=== PATIENT | male | born 1970 | race Hispanic/Latino ===

== ENCOUNTER 2018-08-21 14:41 | Observation (INO) | payer SELFPAY ==
[2018-08-21] MEDS ORDERED: LEVALBUTEROL 1.25 MG/3 ML NEB ONE (15:28)
[2018-08-21 15:31] LABS: Absolute Lymphocytes (CBC) 2.4 K/uL (0.7-4.9); Absolute Monocytes 0.8 K/uL (0.1-1.3); Absolute Neutrophil 8.9 K/uL (1.8-8.0); Basophils % 0.3 % (0-1.3); Eosinophils % 4.2 % (0-4.4); Hematocrit 47.1 % (39.6-49.0); Lymphocytes % 18.9 % (15.3-44.8); MPV 9.1 fL (7.6-11.3); Monocytes % 6.1 % (3.3-12.3); Protime INR 0.97; RBC Red Blood Cell Count 5.16 M/uL (4.33-5.43)
[2018-08-21 15:46] LABS: Albumin 3.9 g/dL (3.4-5.0); Bilirubin Direct 0.2 mg/dL (0-0.2); Bilirubin Total 0.4 mg/dL (0.2-1.0); Magnesium 2.3 mg/dL (1.8-2.4); Potassium 4.1 mmol/L (3.5-5.1); Protein, Total 7.9 g/dL (6.4-8.2); Troponin (Emerg Dept Use Only) 0.05 ng/mL (0.0-0.045)
--- NOTE | 2018-08-21 16:11 | RAD REPORT ---
EXAM DESCRIPTION: RAD - Chest Single View - 08/21/2018 3:57 pm CLINICAL HISTORY: cough, shortness of breath Chest pain. COMPARISON: CHEST SINGLE VIEW dated 04/27/2014; CHEST SINGLE VIEW dated 04/17/2014; CHEST SINGLE VIEW dated 04/16/2014 FINDINGS: Portable technique limits examination quality. The lungs are grossly clear. The heart is normal in size. No displaced fractures. IMPRESSION: No acute intrathoracic process suspected.
[2018-08-21] MEDS ORDERED: METHYLPREDNISOLONE 125 MG INJ ONE (16:51)
--- NOTE | 2018-08-21 17:02 | ER ---
Nurse's Notes [facility] Name: José Beck Age: 48 yrs Sex: Male : 1970 Arrival Date: 08/21/2018 Time: 14:41 Bed 26 Private MD: Diagnosis: Acute bronchitis;Dyspnea;Elevated Troponin Presentation: 08/21 14:49 Presenting complaint: Patient states: I have been having SOB and congestion for about a la1 week and nothing OTC is working. Transition of care: patient was not received from another setting of care. Onset of symptoms was August 21, 2018. Risk Assessment: Do you want to hurt yourself or someone else? Patient reports no desire to harm self or others. Initial Sepsis Screen: Does the patient meet any 2 criteria? No. Patient's initial sepsis screen is negative. Does the patient have a suspected source of infection? No. Patient's initial sepsis screen is negative. Care prior to arrival: None. 14:49 Method Of Arrival: Ambulatory la1 14:49 Acuity: MICHELLE 3 la1 Historical: - Allergies: 14:50 No Known Allergies; la1 - Home Meds: 14:50 metoprolol succinate 100 mg oral Tb24 1 tab once daily [Active]; lisinopril 40 mg Oral la1 tab 1 tab once daily [Active]; - PMHx: 14:50 Hypertension; la1 - Immunization history:: Adult Immunizations up to date. - Social history:: Smoking status: Patient/guardian denies using tobacco. - Ebola Screening: : No symptoms or risks identified at this time. Screenin:55 Abuse screen: Denies threats or abuse. Denies injuries from another. Nutritional ca1 screening: No deficits noted. Tuberculosis screening: No symptoms or risk factors identified. Fall Risk None identified. Assessment: 14:55 General: Appears in no apparent distress. comfortable, Behavior is calm, cooperative, ca1 appropriate for age. 14:55 Pain: Denies pain. Neuro: Level of Consciousness is awake, alert, obeys commands, ca1 Oriented to person, place, time, Appropriate for age. Cardiovascular: Heart tones S1 S2 present Capillary refill < 3 seconds Patient's skin is warm and dry. Rhythm is sinus rhythm. Respiratory: Reports shortness of breath cough that is productive, since a week ago Airway is patent Respiratory effort is even, unlabored, Respiratory pattern is regular, symmetrical, Breath sounds are clear bilaterally. GI: Abdomen is round non-distended, Bowel sounds present X 4 quads. Abd is soft and non tender X 4 quads. : No deficits noted. No signs and/or symptoms were reported regarding the genitourinary system. EENT: Reports nasal congestion nasal discharge that is watery. Derm: Skin is intact, is healthy with good turgor, Skin is pink, warm \T\ dry. Musculoskeletal: Circulation, motion, and sensation intact. Capillary refill < 3 seconds. 15:22 Reassessment: Patient appears in no apparent distress at this time. Patient is alert, ca1 oriented x 3, equal unlabored respirations, skin warm/dry/pink. Significant other at bedside. Reports breathes better with 02 via NC on. 16:07 Reassessment: Patient appears in no apparent distress at this time. Patient is alert, ca1 oriented x 3, equal unlabored respirations, skin warm/dry/pink. 16:43 Reassessment: Patient appears in no apparent distress at this time. Patient is alert, ca1 oriented x 3, equal unlabored respirations, skin warm/dry/pink. 16:53 Reassessment: Dr. Walsh at bedside. ca1 17:25 Reassessment: Patient appears in no apparent distress at this time. Patient is alert, ca1 oriented x 3, equal unlabored respirations, skin warm/dry/pink. Awaiting room assignment. Vital Signs: 14:50 Pulse 80; Resp 20; Temp 99.0(O); Pulse Ox 96% on R/A; Weight 117.93 kg; Height 5 ft. 9 la1 in. (175.26 cm); 14:51 BP 174 / 113; la1 15:22 BP 153 / 107; Pulse 74; Resp 19 S; Pulse Ox 99% on 2 lpm NC; ca1 16:07 BP 149 / 94; Pulse 75; Resp 19 S; Pulse Ox 96% on 2 lpm NC; ca1 16:43 BP 139 / 109; Pulse 83; Resp 19 S; Pulse Ox 97% on 2 lpm NC; ca1 17:25 BP 157 / 103; Pulse 68; Resp 19 S; Pulse Ox 97% on 2 lpm NC; ca1 14:50 Body Mass Index 38.39 (117.93 kg, 175.26 cm) la1 ED Course: 14:41 Patient arrived in ED. as 14:49 Triage completed. la1 14:50 Arm band placed on left wrist. la1 14:54 Artem Chicas PA is PHCP. jmm 14:54 Mekhi Danielson MD is Attending Physician. jmm 14:55 Patient has correct armband on for positive identification. Placed in gown. Bed in low ca1 position. Call light in reach. Side rails up X 1. ekg monitor on. ekg monitor on. Pulse ox on. NIBP on. Warm blanket given. 14:58 Artem Chicas PA is PHCP. jmm 14:58 Mekhi Danielson MD is Attending Physician. jmm 14:58 Carine Rodas, GINO is Primary Nurse. ca1 15:00 Oxygen administration via nasal cannula \T\ 2L/min Response to oxygen therapy: symptoms jp3 improved. 15:05 Flu and/or RSV swab sent to lab. Strep swab sent to lab. EKG done, by ED staff, jp3 reviewed by Artem BALDWIN. 15:15 Initial lab(s) drawn, by vt, sent to lab. Inserted saline lock: 20 gauge in right jp3 antecubital area, using aseptic technique. Blood collected. 15:21 Strep Sent. jp3 15:21 Flu Sent. jp3 15:21 Basic Metabolic Panel Sent. jp3 15:21 CBC with Diff Sent. jp3 15:22 LFT's Sent. jp3 15:22 Magnesium Sent. jp3 15:22 NT PRO-BNP Sent. jp3 15:22 PT-INR Sent. jp3 15:22 Troponin (emerg Dept Use Only) Sent. jp3 15:57 XRAY Chest (1 view) In Process Unspecified. EDMS 17:00 Anup Walsh DO is Hospitalizing Provider. jmm 17:32 No provider procedures requiring assistance completed. Patient admitted, IV remains in ca1 place. Administered Medications: 15:07 Drug: Xopenex 1.25 mg Route: Inhalation; ca1 16:40 Drug: SOLU-Medrol 125 mg Route: IVP; Site: right antecubital; ca1 17:07 Follow up: Response: No adverse reaction; Marked relief of symptoms ca1 16:46 CANCELLED (Duplicate Order): SOLU-Medrol 125 mg IVP once [facility] Outcome: 17:01 Decision to Hospitalize by Provider. humaira 17:32 Admitted to Tele accompanied by tech, family with patient, via wheelchair, room 413, ca1 with chart, Report called to Brandie Kothari RN 17:32 Condition: stable 17:32 Instructed on the need for admit. 17:38 Patient left the ED. ca1 Signatures: Dispatcher [employer] EDMS Artem Chicas PA PA jmm Martinez, Amelia as Attema, Lee, RN RN Jean-Pierre Mcgill jp3 Carine Rodas RN RN ca1 Corrections: (The following items were deleted from the chart) 16:44 15:22 BP 153 / 107; Pulse 74bpm; Resp 19bpm; Spontaneous; Pulse Ox 99% RA; ca1 ca1 16:44 16:07 BP 149 / 94; Pulse 75bpm; Resp 19bpm; Spontaneous; Pulse Ox 96% RA; ca1 ca1
--- NOTE | 2018-08-21 17:02 | EDPHYS ---
Physician Documentation [facility] Name: José Beck Age: 48 yrs Sex: Male : 1970 Arrival Date: 08/21/2018 Time: 14:41 Bed 26 Private MD: ED Physician Mekhi Danielson HPI: 08/21 15:02 This 48 yrs old Male presents to ER via Ambulatory with complaints of Wheezing jmm > 1 Year, Congestion. 15:02 Onset: The symptoms/episode began/occurred gradually, 1 week(s) ago. Modifying factors: jmm The symptoms are alleviated by nothing, the symptoms are aggravated by nothing. This is a 48 year old male with a history of htn that presents to the ED with complaints of cough, fever, congestion beginning 1 week ago. Patient states he has had increasingly worsening shortness of breath. Patient denies chest pain. . Historical: - Allergies: 14:50 No Known Allergies; la1 - Home Meds: 14:50 metoprolol succinate 100 mg oral Tb24 1 tab once daily [Active]; lisinopril 40 mg Oral la1 tab 1 tab once daily [Active]; - PMHx: 14:50 Hypertension; la1 - Immunization history:: Adult Immunizations up to date. - Social history:: Smoking status: Patient/guardian denies using tobacco. - Ebola Screening: : No symptoms or risks identified at this time. ROS: 15:02 Constitutional: Positive for body aches, fever. jmm 15:02 ENT: Positive for sore throat. 15:02 Respiratory: Positive for shortness of breath, wheezing. 15:02 All other systems are negative. Exam: 15:02 Constitutional: This is a well developed, well nourished patient who is awake, alert, jmm and in no acute distress. Head/Face: atraumatic. Eyes: EOMI, no conjunctival erythema appreciated ENT: Moist Mucus Membranes Neck: Trachea midline, Supple Chest/axilla: Normal chest wall appearance and motion. Cardiovascular: Regular rate and rhythm. No edema appreciated 15:02 Back: Normal ROM Skin: General appearance color normal MS/ Extremity: Moves all extremities, no obvious deformities appreciated, no edema noted to the lower extremities Neuro: Awake and alert, normal gait Psych: Behavior is normal, Mood is normal, Patient is cooperative and pleasant 15:02 Respiratory: mild respiratory distress is noted, Respirations: normal, Breath sounds: wheezing: that is moderate, is heard diffusely. 15:02 ECG was reviewed by the Attending Physician. [facility] Vital Signs: 14:50 Pulse 80; Resp 20; Temp 99.0(O); Pulse Ox 96% on R/A; Weight 117.93 kg; Height 5 ft. 9 la1 in. (175.26 cm); 14:51 BP 174 / 113; la1 15:22 BP 153 / 107; Pulse 74; Resp 19 S; Pulse Ox 99% on 2 lpm NC; ca1 16:07 BP 149 / 94; Pulse 75; Resp 19 S; Pulse Ox 96% on 2 lpm NC; ca1 16:43 BP 139 / 109; Pulse 83; Resp 19 S; Pulse Ox 97% on 2 lpm NC; ca1 17:25 BP 157 / 103; Pulse 68; Resp 19 S; Pulse Ox 97% on 2 lpm NC; ca1 14:50 Body Mass Index 38.39 (117.93 kg, 175.26 cm) la1 MDM: 15:02 Patient medically screened. jon 16:53 Data reviewed: vital signs, nurses notes, lab test result(s), EKG, radiologic studies. [facility] ED course: Patient continues to have diffuse wheezing on re auscultation. EKG changes noted. Troponin elevated. I discussed the patient with Dr. Danielson whom recommends admission. I discussed the patient with Dr. Walsh whom accepted admission. . 08/21 15:02 Order name: Basic Metabolic Panel; Complete Time: 15:50 [facility] 08/21 15:02 Order name: CBC with Diff; Complete Time: 15:38 [facility] 08/21 15:02 Order name: LFT's; Complete Time: 15:50 [facility] 08/21 15:02 Order name: Magnesium; Complete Time: 15:50 [facility] 08/21 15:02 Order name: NT PRO-BNP; Complete Time: 15:50 [facility] 08/21 15:02 Order name: PT-INR; Complete Time: 15:38 [facility] 08/21 15:02 Order name: Troponin (emerg Dept Use Only); Complete Time: 15:50 [facility] 08/21 15:02 Order name: XRAY Chest (1 view); Complete Time: 16:18 [facility] 08/21 15:02 Order name: Flu; Complete Time: 15:56 [facility] 08/21 15:02 Order name: Strep; Complete Time: 15:56 [facility] 08/21 15:57 Order name: Throat Culture [facility] 08/21 15:02 Order name: EKG; Complete Time: 15:03 [facility] 08/21 15:02 Order name: Cardiac monitoring; Complete Time: 15:14 [facility] 08/21 15:02 Order name: EKG - Nurse/Tech; Complete Time: 15:14 [facility] 08/21 15:02 Order name: IV Saline Lock; Complete Time: 15:14 [facility] 08/21 15:02 Order name: Labs collected and sent; Complete Time: 15:14 [facility] 08/21 15:02 Order name: O2 Per Protocol; Complete Time: 15:14 [facility] 08/21 15:02 Order name: O2 Sat Monitoring; Complete Time: 15:14 jmm EC:02 Rate is 72 beats/min. Rhythm is regular. QRS [place] is Normal. DC interval is normal. QRS jmm interval is normal. QT interval is normal. T waves are Inverted in leads I, aVL, V5, V6. No ST changes noted. Administered Medications: 15:07 Drug: Xopenex 1.25 mg Route: Inhalation; ca1 16:40 Drug: SOLU-Medrol 125 mg Route: IVP; Site: right antecubital; ca1 17:07 Follow up: Response: No adverse reaction; Marked relief of symptoms ca1 16:46 CANCELLED (Duplicate Order): SOLU-Medrol 125 mg IVP once jmm Disposition: 08/22 08:13 Co-signature as Attending Physician, Mekhi Danielson MD I agree with the assessment and [facility] plan of care. Disposition: 08/21/18 17:01 Hospitalization ordered by Anup Walsh for Observation. Preliminary diagnosis are Acute bronchitis, Dyspnea, Elevated Troponin. - Bed requested for Telemetry/MedSurg (observation). - Status is Observation. ca1 - Condition is Stable. - Problem is new. - Symptoms have improved. UTI on Admission? No Signatures: Dispatcher [employer] EDMS Fern Arriaza Corey, MD MD cha Mickail, Joel, PA PA [facility] Ravi Elmore RN RN la1 Carine Rodas RN RN ca1 Corrections: (The following items were deleted from the chart) 04/07 16:46 16:46 SOLU-Medrol 125 mg IVP once ordered. humaira [facility] 17:23 17:01 Hospitalization Ordered by Anup Walsh DO for Observation. Preliminary bd diagnosis is Acute bronchitis; Dyspnea; Elevated Troponin. Bed requested for Telemetry/MedSurg (observation). Status is Observation. Condition is Stable. Problem is new. Symptoms have improved. UTI on Admission? No. [facility] 17:38 17:23 08/21/2018 17:01 Hospitalization Ordered by Anup Walsh DO for Observation. ca1 Preliminary diagnosis is Acute bronchitis; Dyspnea; Elevated Troponin. Bed requested for Telemetry/MedSurg (observation). Status is Observation. Condition is Stable. Problem is new. Symptoms have improved. UTI on Admission? No. bd
--- NOTE | 2018-08-21 17:11 | P.HP ---
Certification for Inpatient Patient admitted to: Observation With expected LOS: <2 Midnights Patient will require the following post-hospital care: None Practitioner: I am a practitioner with admitting privileges, knowledge of patient current condition, hospital course, and medical plan of care. Services: Services provided to patient in accordance with Admission requirements found in Title 42 Section 412.3 of the Code of Federal Regulations Patient History Date of Service: 08/21/18 Primary Care Provider: Daniella Meza NP; Cardiology-Dr. Mcdonald Reason for admission: SOB History of Present Illness: 48-year-old male presented to emergency room with increasing cough, congestion and shortness of breath. Patient has had symptoms over the last week. The patient has been wheezing. No significant fever, chills. No chest pain noted. His symptoms have not improved. Patient also reports a history of hypertension. Blood pressures have been out of control. Patient with prior history of systolic congestive heart failure with prior ejection fraction of 20- 25%. It is been quite some time that the patient has seen Cardiology. In the ER patient evaluated. Patient had low saturations upon evaluation. Strep test negative. Influenza test negative. Chest x-ray unremarkable. Troponin slightly elevated at 0.05. EKG shows possible T wave inversions in the lateral leads. White count 12.7. Sodium 142, potassium 4.1, BUN of 11, creatinine 1.1 with a GFR 70. Glucose 123. Patient was admitted for observation and to further evaluate. In the ER patient appears stable. Family at bedside. Patient with history of hypertension, systolic CHF with prior ejection fraction of 20-25%. Last heart catheterization was in 2013. Normal coronaries were noted at that time. Patient has not followed up with Cardiology recently. Blood pressures have been elevated. Patient continues to drink alcohol and smokes but is trying to cut down on both. Patient with significant family history of heart disease. Allergies No Known Drug Allergies Allergy (Unverified 04/28/14 04:14) Unknown Home medications list reviewed: Yes Home Medications: Amlodipine [Norvasc*] 5 mg PO BID #60 tab 04/20/14 Carvedilol [Coreg*] 12.5 mg PO BID #60 tab 04/20/14 Furosemide [Lasix*] 40 mg PO DAILY #30 tab 04/20/14 Lisinopril [Prinivil*] 10 mg PO BID #60 tab 04/20/14 - Past Medical/Surgical History Diabetic: No -: Hypertension -: History CHF, systolic dysfunction, ejection fraction 20-25% Past Surgical History: Patient denies surgical history Psychosocial/ Personal History: Patient is . 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 - Family History Father -: Heart disease Brother -: Heart disease - Social History Smoking Status: Light Tobacco smoker (1-9 cigarettes/day) Counseled patient to stop smoking for: less than 10 minutes Smoking therapy provided: Yes Patient receptive to therapy: Yes Alcohol use: Yes CD- Drugs: No Caffeine use: Yes Place of Residence: Home Review of Systems General: As per HPI Eyes: As per HPI ENT: Unremarkable Respiratory: Cough, Shortness of Breath, SOB with Excertion, Wheezing, As per HPI Cardiovascular: As per HPI Gastrointestinal: Unremarkable Genitourinary: Unremarkable Musculoskeletal: As per HPI Integumentary: Unremarkable Neurological: Unremarkable Lymphatics: Unremarkable Physical Examination - Physical Exam General: Alert, In no apparent distress, Oriented x3, Cooperative HEENT: Atraumatic, Normocephalic, PERRLA, Mucous membr. moist/pink Neck: Supple, No Thyromegaly Respiratory: Expiratory wheezes (Bilateral), Inspiratory wheezes (Bilateral) Cardiovascular: Normal pulses, Regular rate/rhythm Gastrointestinal: Normal bowel sounds, Soft and benign, Non-distended, No tenderness, No masses, No rebound, No guarding Musculoskeletal: No erythema, No tenderness, No warmth Integumentary: Tenderness/swelling (trace edema to the lower extremities bilateral) Neurological: Normal speech, Normal strength at 5/5 x4 extr, Normal tone, Normal affect - Studies Laboratory Data (last 24 hrs) 08/21/18 15:15: PT 11.5, INR 0.97 08/21/18 15:15: WBC 12.7 H, Hgb 16.4, Hct 47.1, Plt Count 286 08/21/18 15:15: Sodium 142, Potassium 4.1, BUN 11, Creatinine 1.12, Glucose 123 H, Magnesium 2.3, Total Bilirubin 0.4, AST 30, ALT 46, Alkaline Phosphatase 86 Microbiology Data (last 24 hrs): 08/21/18 15:10 Throat Group A Streptococcus Rapid Screen - Final 08/21/18 15:10 Nasopharnyx Influenza Type A Antigen Screen - Final 08/21/18 15:10 Nasopharnyx Influenza Type B Antigen Screen - Final Assessment and Plan - Plan Impression: Cough, shortness of breath likely related to viral bronchitis with underlying COPD and mild exacerbation Hypertension, uncontrolled Elevated troponin with history of chronic systolic CHF with prior ejection fraction of 20-25% Tobacco abuse Alcohol use Suspect obstructive sleep apnea Plan: Cough, shortness of breath likely related to viral bronchitis with underlying COPD and mild exacerbation: Patient will be admitted and observed. Patient likely with viral bronchitis and underlying COPD especially with his history of tobacco abuse. Will start low-dose prednisone. Will continue with albuterol and Atrovent nebs. Will start Advair twice daily. Anticipate improvement. Patient will require COPD medication at discharge. Patient will need to follow up with pulmonology as an outpatient to further monitor and address. Tobacco cessation addressed in detail. More than 3 min of education addressed. It is been quite sometime since his last evaluation by Cardiology. Due to his shortness of breath, uncontrolled hypertension and slight elevation in troponin , will consult cardiology to further evaluate as well. Will obtain echocardiogram to evaluate his chronic systolic CHF. Prior injection fraction 20 to 25%. Patient is not taking any Lasix at this time. It also appears that he is not on a fluid restriction. Will adjust blood pressure medication. Will start low-dose Lasix. Will keep the patient NPO as the patient may require cardiac evaluation during his hospital stay. Will start DVT prophylaxis- Lovenox. Will continue with aspirin, beta-cindy and Rahul therapy. Will start Lipitor and check fasting lipid panel. I will turn the service over to Dr. Hagan tomorrow. I will go over the plan of care with her. Hypertension, uncontrolled: Will increase metoprolol to 100 mg 1 pill twice daily. Will continue with lisinopril 40 mg daily. Will add hydralazine IV as needed. Patient may require additional medication for better blood pressure control. Elevated troponin with history of chronic systolic CHF with prior ejection fraction of 20-25%: Cardiology consulted. Will start low-dose Lasix 20 mg p.o. twice daily. Will continue with beta-cindy and Rahul therapy. Obtain echocardiogram to assess his CHF. Patient will need to be taught on fluid restriction if patient still with abnormal ejection fraction. If ejection fraction still abnormal patient may benefit with Entresto. Patient NPO after midnight in the event that the patient requires cardiac evaluation. Tobacco abuse: Tobacco cessation addressed in detail. Alcohol use: Alcohol cessation addressed in detail. Suspect obstructive sleep apnea: Patient can be evaluated as an outpatient with sleep study to further assess. Discharge Plan: Home Plan to discharge in: 24 Hours - Advance Directives Does patient have a Living Will: No Does patient have a Durable POA for Healthcare: No - Code Status/Comfort Care Code Status Assessed: Yes (Patient full code.) Time Spent Managing Pts Care (In Minutes): 55
[2018-08-21 17:53] VITALS: BMI 38.4
[2018-08-21] MEDS ORDERED: MORPHINE 2 MG/ML SYR IV PRN (18:01)
[2018-08-21] MEDS ORDERED: ALBUTEROL 2.5 MG/3 ML NEB SOL NEB PRN (18:01)
[2018-08-21] MEDS ORDERED: IPRATROPIUM BROM 0.5MG/2.5ML NEB PRN (18:01)
[2018-08-21] MEDS ORDERED: ONDANSETRON 4 MG/2 ML VIAL IV PRN (18:01)
[2018-08-21] MEDS ORDERED: NITROGLYCERIN 0.4 MG/TAB SL PRN (18:01)
[2018-08-21] MEDS ORDERED: BENZONATATE 100 MG CAP PO PRN (18:01)
[2018-08-21] MEDS ORDERED: ACETAMINOPHEN 500 MG TAB PO PRN (18:01)
[2018-08-21] MEDS: METOPROLOL XL 100 MG TAB PO SCH (18:22)
[2018-08-21] MEDS: HYDRALAZINE HCL 20 MG/ML VIAL IV PRN (18:22)
[2018-08-21] MEDS: NICOTINE 21 MG/PAT TD SCH (18:30)
[2018-08-21] MEDS: ENOXAPARIN 40 MG/0.4 ML SQ SCH (18:44)
[2018-08-21 19:27] LABS: Urine Appearance CLEAR; Urine Bilirubin NEGATIVE (NEG); Urine Blood NEGATIVE (NEG); Urine Color YELLOW; Urine Glucose NEGATIVE (NEG); Urine Protein NEGATIVE (NEG); Urine Specific Gravity 1.025 (1.005-1.030); Urine Urobilinogen 0.2 mg/dL (0.2-1.0)
[2018-08-21 19:30] LABS: CKMB Creatine Kinase MB 1.1 ng/mL (0.3-3.6); Troponin I 0.04 ng/mL (0.0-0.045)
[2018-08-21 19:31] LABS: Urine Microscopic Reflex NO UMIC
[2018-08-21 19:35] LABS: Thyroid Stimulating Hormone 0.865 uIU/mL (0.360-3.740)
[2018-08-21] MEDS: FLUTICASONE 50MCG NASAL SPRAY NAS SCH ×2 (21:00→22:28)
[2018-08-21] MEDS ORDERED: ATORVASTATIN 40 MG TAB PO SCH (21:00)
[2018-08-21] MEDS: DULERA 100/5 (MOMETASONE/FORMOTEROL) INHALER IH SCH (22:28)
[2018-08-21] MEDS: FAMOTIDINE 20 MG TAB PO SCH (22:29)
[2018-08-21] MEDS: predniSONE 10 MG TAB PO SCH (22:29)
[2018-08-21] MEDS: GUAIFENESIN 600 MG SA TAB PO SCH (22:29)
[2018-08-22] MEDS: HYDRALAZINE HCL 20 MG/ML VIAL IV PRN (00:54)
[2018-08-22 04:17] LABS: Absolute Lymphocytes (CBC) 1.3 K/uL (0.7-4.9); Absolute Monocytes 0.1 K/uL (0.1-1.3); Absolute Neutrophil 8.2 K/uL (1.8-8.0); Basophils % 0.1 % (0-1.3); Hematocrit 47.8 % (39.6-49.0); Lymphocytes % 13.7 % (15.3-44.8); MPV 9.9 fL (7.6-11.3); Monocytes % 1.4 % (3.3-12.3); RBC Red Blood Cell Count 5.19 M/uL (4.33-5.43)
[2018-08-22 04:47] LABS: CKMB Creatine Kinase MB 1.3 ng/mL (0.3-3.6); Magnesium 2.4 mg/dL (1.8-2.4); Potassium 4.3 mmol/L (3.5-5.1); Troponin I 0.04 ng/mL (0.0-0.045)
[2018-08-22] MEDS: METOPROLOL XL 100 MG TAB PO SCH (05:00)
[2018-08-22] MEDS ORDERED: LISINOPRIL 20 MG TAB PO SCH (09:00)
[2018-08-22] MEDS ORDERED: FUROSEMIDE 20 MG TABLET PO SCH (09:00)
[2018-08-22] MEDS: NICOTINE 21 MG/PAT TD SCH (09:00)
[2018-08-22] MEDS ORDERED: ASPIRIN EC 81 MG TAB PO SCH (09:00)
[2018-08-22 09:05] VITALS: BP 204/98; TEMP 97.5
[2018-08-22] MEDS: ENOXAPARIN 40 MG/0.4 ML SQ SCH (09:57)
[2018-08-22] MEDS: FAMOTIDINE 20 MG TAB PO SCH (09:57)
[2018-08-22] MEDS: predniSONE 10 MG TAB PO SCH (09:57)
[2018-08-22] MEDS: GUAIFENESIN 600 MG SA TAB PO SCH (09:57)
[2018-08-22] MEDS: DULERA 100/5 (MOMETASONE/FORMOTEROL) INHALER IH SCH (09:58)
[2018-08-22] MEDS: FLUTICASONE 50MCG NASAL SPRAY NAS SCH (09:58)
[2018-08-22 10:27] VITALS: O2SAT 96
--- NOTE | 2018-08-22 10:38 | ECHO ---
HEIGHT: 5 ft 9 in WEIGHT: 260 lb 0 oz DATE OF STUDY: 08/22/[address]: Anup Walsh DO 2-DIMENSIONAL: YES M.MODE: YES DOPPLER: YES COLOR FLOW: YES TDS: NO PORTABLE: NO DEFINITY: NO BUBBLE STUDY: NO DIAGNOSIS: SHORTNESS OF BREATH, EVALUATE FOR CONGESTIVE HEART FAILURE/ CORONARY ARTERY DISEASE, HISTORY OF HYPERTENSION CARDIAC HISTORY: CATHERIZATION: NO SURGERY: NO PROSTHETIC VALVE: NO PACEMAKER: NO MEASUREMENTS (cm) DIASTOLIC (NORMALS) SYSTOLIC (NORMALS) IVSd 1.0 (0.6-1.2) LA Diam 3.8 (1.9-4.0) LVEF 71% LVIDd 4.2 (3.5-5.7) LVIDs 2.5 (2.0-3.5) %FS 40% LVPWd 1.1 (0.6-1.2) Ao Diam 2.9 (2.0-3.7) 2 DIMENSIONAL ASSESSMENT: RIGHT ATRIUM: NORMAL LEFT ATRIUM: NORMAL RIGHT VENTRICLE: NORMAL LEFT VENTRICLE: NORMAL TRICUSPID VALVE: NORMAL MITRAL VALVE: NORMAL PULMONIC VALVE: NORMAL AORTIC VALVE: NORMAL PERICARDIAL EFFUSION: NONE AORTIC ROOT: NORMAL LEFT VENTRICULAR WALL MOTION: NORMAL. DOPPLER/COLOR FLOW: NORMAL. COMMENTS: NORMAL 2D ECHO WITH DOPPLER. LEFT VENTRICULAR EJECTION FRACTION MARKEDLY IMPROVED SINCE 2013. TECHNOLOGIST: WYATT BEAN
--- NOTE | 2018-08-22 12:42 | CON ---
Mr. Beck came to the hospital because of the cough and shortness of breath. He has received some ant ibiotics, feels better, anxious to go home. One of his troponins was 0.05, the other 2 are 0.04. I am asked to evaluate this. Mr. Beck had a nonischemic cardiomyopathy. Cardiac cath showed normal co ronary arteries, EF 25%. About a year later, his left ventricular ejection fraction was normal. He has not had follow up with Cardiology since then. He has no heart failure symptoms. No other cardia c symptoms. Outpatient medications have been lisinopril, metoprolol, and Mucinex. Physical Examination: Vital Signs: He is 5 feet 9 inches, 260 pounds. General: Obese, alert, oriented, pleasant, not in distress. Lungs: Clear. Cardiac: Normal. Extremities: No cyanosis, clubbing, or edema. His EKG does not show infarction, injury, or ischemia. I would recommend we do an echo, which shows his ejection fraction is normal, no segmental wall motion abnormalities found on the workup. Now, I suspect his cardiomyopathy resolved. JEAN/DURAN Voice ID: [id number] Report ID: [id number]
--- NOTE | 2018-08-22 17:48 | P.SSS ---
Patient History Date of Service: 08/22/18 Primary Care Provider: Daniella Meza NP; Cardiology-Dr. Mcdonald Reason for admission: SOB History of Present Illness: 48-year-old male presented to emergency room with increasing cough, congestion and shortness of breath. Patient has had symptoms over the last week. The patient has been wheezing. No significant fever, chills. No chest pain noted. His symptoms have not improved. Patient also reports a history of hypertension. Blood pressures have been out of control. Patient with prior history of systolic congestive heart failure with prior ejection fraction of 20- 25%. It is been quite some time that the patient has seen Cardiology. In the ER patient evaluated. Patient had low saturations upon evaluation. Strep test negative. Influenza test negative. Chest x-ray unremarkable. Troponin slightly elevated at 0.05. EKG shows possible T wave inversions in the lateral leads. White count 12.7. Sodium 142, potassium 4.1, BUN of 11, creatinine 1.1 with a GFR 70. Glucose 123. Patient was admitted for observation and to further evaluate. In the ER patient appears stable. Family at bedside. Patient with history of hypertension, systolic CHF with prior ejection fraction of 20-25%. Last heart catheterization was in 2013. Normal coronaries were noted at that time. Patient has not followed up with Cardiology recently. Blood pressures have been elevated. Patient continues to drink alcohol and smokes but is trying to cut down on both. Patient with significant family history of heart disease. Allergies No Known Drug Allergies Allergy (Verified 08/21/18 18:08) Unknown Home Medications: Guaifenesin/D-Methorphan Hb/PE [Mucinex Fast-Max Congest-Cough] 2 tab PO Q4H 12/02 Lisinopril [Prinivil*] 40 mg PO DAILY 08/21/18 Metoprolol Succinate [Toprol Xl] 1 tab PO DAILY 08/21/18 Albuterol Inhaler [Ventolin Inhaler*] 2 puff IH Q6H PRN #1 hfa.aer.ad 08/22/18 Mometasone/Formoterol [Dulera 100 Mcg/5 Mcg Inhaler] 2 puff IH BID #1 inhaler predniSONE [Deltasone*] 10 mg PO BID #10 tab 08/22/18 - Past Medical/Surgical History Has patient received pneumonia vaccine in the past: No Diabetic: No -: Hypertension -: History CHF, systolic dysfunction, ejection fraction 20-25% Psychosocial/ Personal History: Patient is . 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 moist/pink, EOMI, Sclerae nonicteric Neck: Supple, 2+ carotid pulse no bruit, No LAD, Without JVD or thyroid abnormality Respiratory: Clear to auscultation bilaterally, Normal air movement Cardiovascular: Regular rate/rhythm, Normal S1 S2 Gastrointestinal: Normal bowel sounds, No tenderness Musculoskeletal: No tenderness Integumentary: No rashes Neurological: Normal gait, Normal speech, Normal strength at 5/5 x4 extr, Normal tone, Normal affect Lymphatics: No axilla or inguinal lymphadenopathy - Studies Microbiology Data (last 24 hrs): 08/21/18 15:10 Throat Group A Streptococcus Rapid Screen - Final 08/21/18 15:10 Nasopharnyx Influenza Type A Antigen Screen - Final 08/21/18 15:10 Nasopharnyx Influenza Type B Antigen Screen - Final - Diagnosis (Problem(s)) (1) Viral bronchitis Status: Acute (2) COPD exacerbation Status: Acute Treatment Summary: Overall during the hospital stay patient remained stable Patient was initially admitted to the hospital for shortness of breath and chest pain. Patient was found to have viral bronchitis along with COPD exacerbation secondary to viral bronchitis. Patient is an active smoker which most likely aggravated his COPD and caused him to have an exacerbation. Patient also had a history of possible congestive heart failure and had an echocardiogram done here in the hospital which was within normal limit with EF of 71%. Patient had marked improvement in his symptoms after he was initially treated here at the hospital with duo nebs, steroids and oxygen. Patient was successfully weaned off of oxygen and did well overall and thus was discharged home under stable condition. Patient was asked to follow up with primary care provider along with pulmonology in about 1-2 days post discharge. Patient demonstrate understanding and thus was discharged home under stable condition. Patient was given a prescription for Dulera along with steroids to be taken for total of 10 days. - Disposition Disposition: ROUTINE DISCHARGE Condition: GOOD Patient Discharge Instructions: Please f.u with PCP and Dr Liu in 1 to 2 week post discharge. New medication. Dulera 2 puff BID daily. Albuertol 2 puff q6h prn. Prednisone 10mg BID Diet: Regular Activity: Ad stanley
--- NOTE | 2018-08-23 11:36 | EKG ---
Test Date: 2018-08-21 Test Time: 15:09:08 Interlocking Installer: SCOTTY MEASUREMENT RESULTS: Intervals: Rate: 72 WI: 186 QRSD: 84 QT: 382 QTc: 418 [place]: P: 69 WI: 186 QRS: 44 T: 171 INTERPRETIVE STATEMENTS: Normal sinus rhythm ST & T wave abnormality, consider inferolateral ischemia Abnormal ECG Compared to ECG 12/26/2014 23:07:04 ST (T wave) deviation now present Myocardial infarct finding no longer present T-wave abnormality no longer present Possible ischemia still present Electronically Signed On 08-22-18 10:51:33 CDT by Landen Estevez
--- NOTE | 2018-08-23 11:36 | EKG ---
Test Date: 2018-08-21 Test Time: 18:28:38 Curator Of Education: MEASUREMENT RESULTS: Intervals: Rate: 71 [place]: 186 QRSD: 82 QT: 408 QTc: 443 [place]: P: 63 CO: 186 QRS: 44 T: 150 INTERPRETIVE STATEMENTS: Normal sinus rhythm T wave abnormality, consider lateral ischemia Abnormal ECG Compared to ECG 08/21/2018 15:09:08 T-wave abnormality now present ST (T wave) deviation no longer present Possible ischemia still present Electronically Signed On 08-22-18 10:50:43 CDT by Landen Estevez
== END 2018-08-22 13:42 | disposition home or self-care (01) ==
LOC: ER 14:41 → ERHOLD 17:02 → 4TH 17:34
PROVIDERS: ADMIT Family Medicine; ATTEND Family Medicine
DX: J20.8 Acute bronchitis due to other specified organisms (principal); J44.1 Chronic obstructive pulmonary disease with (acute) exacerbation; I11.0 Hypertensive heart disease with heart failure; I50.22 Chronic systolic (congestive) heart failure; F10.21 Alcohol dependence, in remission; F17.210 Nicotine dependence, cigarettes, uncomplicated
CPT/HCPCS: 36415; 71045; 80048; 80061; 80076; 81003; 82550; 82553; 83735; 83880; 84439; 84443; 84484; 85025; 85610; 87070; 87081; 87804; 93005; 93306; 96374; 99285; G0378; J0360; J1650; J2930; J7512; J7606

== ENCOUNTER 2019-10-01 17:01 | Emergency (ER) | payer SELFPAY ==
[2019-10-01 17:44] LABS: Absolute Lymphocytes (CBC) 3.6 K/uL (0.7-4.9); Basophils % 0.5 % (0-1.3); Hematocrit 43.3 % (39.6-49.0); Lymphocytes % 21.5 % (15.3-44.8); MPV 9.5 fL (7.6-11.3)
[2019-10-01 18:05] LABS: Troponin (Emerg Dept Use Only) 0.02 ng/mL (0.0-0.045)
[2019-10-01] MEDS ORDERED: NA CHLORIDE 0.9% 1,000 ML ONE (18:07)
--- NOTE | 2019-10-01 18:44 | RAD REPORT ---
EXAM DESCRIPTION: [facility] Single View10/01/2019 6:10 pm CLINICAL HISTORY: Chest pain COMPARISON: 2019 FINDINGS: The lungs appear clear of acute infiltrate. The heart is normal size IMPRESSION: No acute abnormalities displayed
--- NOTE | 2019-10-01 20:16 | ER ---
Nurse's Notes [facility] Name: José Beck Age: 49 yrs Sex: Male : 1970 Arrival Date: 10/01/2019 Time: 17:05 Bed 16 Private MD: Diagnosis: Poisoning by, adverse effect of and underdosing of other and unspecified drugs, medicaments and biological substances Presentation: 09/30 17:06 Initial Sepsis Screen: Does the patient meet any 2 criteria? No. Patient's initial ls4 sepsis screen is negative. Does the patient have a suspected source of infection? No. Patient's initial sepsis screen is negative. Risk Assessment: Do you want to hurt yourself or someone else? Patient reports no desire to harm self or others. Onset of symptoms was October 01, 2019 at 16:55. Care prior to arrival: Medication(s) given: Normal saline infusion, 500 mL, IV initiated. 18 GA, in the left antecubital area. Activity prior to arrival: vomiting. 17:06 Acuity: MICHELLE 2 ls4 17:49 Chief complaint: EMS states: PT ACCIDENTALLY TOOK HIS BLOOD PRESSURE MEDICATIONS 2 ls4 TIMES TODAY. TOOK AT 0945 AND AGAIN AT 1700. PT BECAME DIAPHORETIC AND VOMITTED, BUT DENIES CHEST PAIN. Coronavirus screen: Proceed with normal triage. Patient denies a cough. Patient denies shortness of breath or difficulty breathing. Patient denies measured and/or subjective temperature greater than 100.4F prior to today's visit. Patient denies travel on a cruise ship or to a country the [facility] currently lists as an affected area. Patient denies contact with known and/or suspected case of COVID-19. Ebola Screen: No symptoms or risks identified at this time. 17:49 Method Of Arrival: EMS: [facility] ls4 Triage Assessment: 17:53 General: Appears distressed, uncomfortable, obese, Behavior is anxious, restless, ls4 Reports feeling ill for 0-12 hours. Pain: Denies pain. Neuro: No deficits noted. Cardiovascular: Capillary refill < 3 seconds Clubbing of nail beds is absent JVD is absent Thorax Rhythm is sinus bradycardia Parent/caregiver reports patient has had diaphoresis, fatigue, lightheadedness, nausea, vomiting. Cardiovascular: Denies chest pain. Respiratory: Airway is patent Respiratory effort is even, unlabored, Respiratory pattern is regular, the patient has severe shortness of breath. Derm: Skin is intact, is healthy with good turgor, Skin is clammy, diaphoretic, Skin is normal. Musculoskeletal: No deficits noted. No signs and/or symptoms reported regarding the musculoskeletal system. Historical: - Allergies: 17:58 No Known Drug Allergies; ls4 - Home Meds: 17:58 lisinopril 40 mg Oral tab 1 tab once daily [Active]; metoprolol succinate 100 mg Oral ls4 Tb24 1 tab once daily [Active]; carvedilol 6.25 mg oral tab [Active]; - PMHx: 17:58 Hypertension; CAD; ls4 - Immunization history:: Adult Immunizations up to date, Flu vaccine is not up to date. - Social history:: Smoking status: Patient denies any tobacco usage or history of. Patient/guardian denies using alcohol, street drugs, IV drugs. - Family history:: not pertinent. - Hospitalizations: : No recent hospitalization is reported. Screenin:59 Abuse screen: Denies threats or abuse. Denies injuries from another. Nutritional ls4 screening: No deficits noted. Tuberculosis screening: No symptoms or risk factors identified. Fall Risk None identified. Assessment: 18:00 Reassessment: Patient appears in no apparent distress at this time. Patient and/or ls4 family updated on plan of care and expected duration. Pain level reassessed. Patient is alert, oriented x 3, equal unlabored respirations, skin warm/dry/pink. 18:59 Reassessment: Patient appears in no apparent distress at this time. Patient and/or ls4 family updated on plan of care and expected duration. Pain level reassessed. Patient is alert, oriented x 3, equal unlabored respirations, skin warm/dry/pink. Patient states symptoms have improved. Derm: Skin is dry, moist. 20:23 Reassessment: Patient appears in no apparent distress at this time. Patient and/or ls4 family updated on plan of care and expected duration. Pain level reassessed. Patient is alert, oriented x 3, equal unlabored respirations, skin warm/dry/pink. PT STATES THAT HIS BLOOD PRESSURE IS ALWAYS AT LEAST 200/100. PT STATES THAT HE WAS TO RETURN TO HAVE MORE BLOOD PRESSURE MEDICATION ADJUSTMENTS BUT THE [facility] DELAYED THAT. PT EDUCATED ON IMPORTANCE OF LOWERING HIS BLOOD PRESSURE WITH HIS VETERINARY TECHNICIAN ASSISTANT AND COMPLIANCE WHILE ADJUSTMENTS ARE MADE, PT ADMITS TO FREQUENTLY BEING NON COMPLIANT BECAUSE HE DOES NOT FEEL GOOD WHEN HIS BLOOD PRESSURE IS LOWER THAN HIS NORMAL. PT STATES HE IS GOING TO SEE HIS VETERINARY TECHNICIAN ASSISTANT THIS WEEK. DAUGHTER ALSO EDUCATED ON IMPORTANCE OF COMPLIANCE WITH RECOMMENDATIONS BY . ALSO EDUCATED THEM ON HIGH SALT FOODS AND AVOIDING THEM. Patient states feeling better. Patient states symptoms have improved. 21:40 Reassessment: Patient appears in no apparent distress at this time. Patient and/or ls4 family updated on plan of care and expected duration. Pain level reassessed. Patient is alert, oriented x 3, equal unlabored respirations, skin warm/dry/pink. PT STATES HE IS BETTER AND WANTS TO GO HOME. PT DAUGHTER CALLED TO PICK HIM UP. PT DAUGHTER CALLED TO PICK HIM UP. PT VOIDED 300 ML IN URINAL AT BEDSIDE. PT ABLE TO GET OUT OF BED INDEPENDENTLY AND IS STEADY. PT REQUESTS TO WAIT FOR DAUGHTER OUTSIDE. . Vital Signs: 17:06 BP 160 / 98; Pulse 51; Resp 28; Temp 97.9(O); Pulse Ox 93% on R/A; Weight 122.47 kg; ls4 Height 5 ft. 9 in. (175.26 cm); Pain 0/10; 17:58 BP 165 / 112; Pulse 50; Resp 19; Pulse Ox 96% ; ls4 18:55 BP 176 / 98; Pulse 66; rn 19:20 BP 194 / 104; Pulse 62; Resp 14; Pulse Ox 99% on R/A; Pain 0/10; ls4 20:00 BP 188 / 100; Pulse 62; Resp 17; Pulse Ox 100% on R/A; ea 20:27 BP 178 / 99; Pulse 72; Resp 14; Pulse Ox 98% on R/A; Pain 0/10; ls4 17:06 Body Mass Index 39.87 (122.47 kg, 175.26 cm) ls4 ED Course: 17:05 Patient arrived in ED. rn 17:05 Maurilio Ramirez MD is Attending Physician. rn 17:05 Arm band placed on right wrist. ls4 17:48 Trang Arredondo, GINO is Primary Nurse. ls4 17:53 Triage completed. ls4 18:09 XRAY Chest (1 view) Sent. ls4 18:10 XRAY Chest (1 view) In Process Unspecified. EDMS 19:00 No provider procedures requiring assistance completed. Inserted Maintain EMS IV. ls4 Dressing intact. Good blood return noted. Site clean \T\ dry. Gauge \T\ site: 18 la. Flushed peripheral line. Patient maintains SpO2 saturation greater than 95% on room air. 19:28 IV discontinued, intact, bleeding controlled, No redness/swelling at site. Pressure ls4 dressing applied. 20:09 Patient has correct armband on for positive identification. Bed in low position. Call ea light in reach. Administered Medications: 17:20 Drug: NS 0.9% 1000 ml Route: IV; Rate: 1000 ml; Site: left antecubital; ls4 18:20 Follow up: IV Status: Completed infusion; IV Intake: 1000ml ls4 Intake: 18:20 IV: 1000ml; Total: 1000ml. ls4 Outcome: 20:16 Discharge ordered by . tw4 20:28 Condition: stable ls4 20:28 Discharge instructions given to patient, family, Instructed on discharge instructions, follow up and referral plans. medication usage, safety practices, Demonstrated understanding of instructions, follow-up care, medications. 21:40 Patient left the ED. ls4 21:42 Discharged to home via wheelchair, PT AMBULATED TO WHEELCHAIR. REQUESTS TO WAIT ls4 OUTSIDE FOR DAUGHTER. Signatures: Dispatcher [employer] EDMS Maurilio Ramirez MD MD rn Antunez, Elena, RN Brad Palacios ea, MD MD tw4 Trang Arredondo RN RN ls4 Corrections: (The following items were deleted from the chart) 21:54 20:28 Discharged to home ambulatory, ls4 ls4 21:56 21:55 Patient left the ED. ls4 ls4
--- NOTE | 2019-10-01 20:17 | EDPHYS ---
Physician Documentation [facility] Name: José Beck Age: 49 yrs Sex: Male : 1970 Arrival Date: 10/01/2019 Time: 17:05 Bed 16 Private MD: ED Physician Maurilio Ramirez HPI: 09/30 17:13 This 49 yrs old Male presents to ER via Unassigned with complaints of took rn extra BP medication. 17:13 Reports grilling at home, didn't remember if took her BP meds this AM so took another rn set, takes 3 different meds, took duplicates approx 45 min ago, reports about 15 min later felt lightheaded, fatigue, and was found by EMS laying down on grass. No syncope/chest pain/sob/abd pain/diarrhea. Glucose normal. Patient states felt fine prior to taking duplicate medication, states baseline BP is 200 systolic. Feeling a little better after fluids. . Onset: The symptoms/episode began/occurred just prior to arrival. Severity of symptoms: At their worst the symptoms were moderate in the emergency department the symptoms have improved. The patient has not experienced similar symptoms in the past. The patient has not recently seen a physician. Historical: - Allergies: 17:58 No Known Drug Allergies; ls4 - Home Meds: 17:58 lisinopril 40 mg Oral tab 1 tab once daily [Active]; metoprolol succinate 100 mg Oral ls4 Tb24 1 tab once daily [Active]; carvedilol 6.25 mg oral tab [Active]; - PMHx: 17:58 Hypertension; CAD; ls4 - Immunization history:: Adult Immunizations up to date, Flu vaccine is not up to date. - Social history:: Smoking status: Patient denies any tobacco usage or history of. Patient/guardian denies using alcohol, street drugs, IV drugs. - Family history:: not pertinent. - Hospitalizations: : No recent hospitalization is reported. ROS: 17:13 Constitutional: Negative for fever, chills, and weight loss, Eyes: Negative for injury, rn pain, redness, and discharge, Neck: Negative for injury, pain, and swelling, Cardiovascular: Negative for chest pain, palpitations, and edema, Respiratory: Negative for shortness of breath, cough, wheezing, and pleuritic chest pain, Abdomen/GI: Negative for abdominal pain, nausea, vomiting, diarrhea, and constipation, MS/Extremity: Negative for injury and deformity, Skin: Negative for injury, rash, and discoloration, Neuro: Negative for headache, numbness, tingling, and seizure. Exam: 17:13 Constitutional: This is a well developed, well nourished patient who is awake, alert, rn and in no acute distress. Head/Face: Normocephalic, atraumatic. Eyes: Pupils equal round and reactive to light, extra-ocular motions intact. Lids and lashes normal. Conjunctiva and sclera are non-icteric and not injected. Cornea within normal limits. Periorbital areas with no swelling, redness, or edema. ENT: dry MM Cardiovascular: Regular rate and rhythm. No pulse deficits. Respiratory: No increased work of breathing, no retractions or nasal flaring. Abdomen/GI: soft, non-tender Skin: Warm, dry MS/ Extremity: Pulses equal, no cyanosis. Neurovascular intact. Full, normal range of motion. Equal circumference. Neuro: Awake and alert, GCS 15, oriented to person, place, time, and situation. Cranial nerves II-XII grossly intact. Motor strength 5/5 in all extremities. Sensory grossly intact. Cerebellar exam normal. 17:58 ECG was reviewed by the Attending Physician. rn Vital Signs: 17:06 BP 160 / 98; Pulse 51; Resp 28; Temp 97.9(O); Pulse Ox 93% on R/A; Weight 122.47 kg; ls4 Height 5 ft. 9 in. (175.26 cm); Pain 0/10; 17:58 BP 165 / 112; Pulse 50; Resp 19; Pulse Ox 96% ; ls4 18:55 BP 176 / 98; Pulse 66; rn 19:20 BP 194 / 104; Pulse 62; Resp 14; Pulse Ox 99% on R/A; Pain 0/10; ls4 20:00 BP 188 / 100; Pulse 62; Resp 17; Pulse Ox 100% on R/A; ea 20:27 BP 178 / 99; Pulse 72; Resp 14; Pulse Ox 98% on R/A; Pain 0/10; ls4 17:06 Body Mass Index 39.87 (122.47 kg, 175.26 cm) ls4 MDM: 17:06 Patient medically screened. rn 18:10 Data reviewed: vital signs, nurses notes, lab test result(s), EKG, and as a result, I rn will continue to observe the patient. Counseling: I had a detailed discussion with the patient and/or guardian regarding: the historical points, exam findings, and any diagnostic results supporting the discharge/admit diagnosis, the presence of at least one elevated blood pressure reading (>120/80) during this emergency department visit, lab results. ED course: Pt states still feels ok other than sleepy, when talked again about how BP still high, he states normal BP for him is 200s/110s, and this is low. Confirms that he is not having chest pain/sob/abd pain. . 18:53 ED course: Will continue to observe patient in ER, handed off to Dr. Sheehan for further rn care. . 18:54 Transition of care: After a detail discussion of the patient's case, care is rn transferred to Brad Sheehan MD. 09/30 17:07 Order name: CBC with Diff; Complete Time: 17:55 rn 09/30 17:07 Order name: Basic Metabolic Panel; Complete Time: 18:06 rn 09/30 17:07 Order name: EKG; Complete Time: 17:07 rn 09/30 17:07 Order name: Troponin (emerg Dept Use Only); Complete Time: 18:06 rn 09/30 17:55 Order name: XRAY Chest (1 view); Complete Time: 18:47 rn 09/30 17:07 Order name: IV Start; Complete Time: 18:08 rn 09/30 17:07 Order name: EKG - Nurse/Tech; Complete Time: 18:00 rn 09/30 17:07 Order name: Monitor; Complete Time: 18:00 rn EC:58 Rate is 52 beats/min. Rhythm is regular. QRS [place] is Normal. AL interval is normal. QRS rn interval is normal. QT interval is normal. No Q waves. T waves are Inverted in leads V5, V6. No ST changes noted. Clinical impression: Sinus bradycardia and Non-specific t wave abnormality. Interpreted by me. Reviewed by me. Administered Medications: 17:20 Drug: NS 0.9% 1000 ml Route: IV; Rate: 1000 ml; Site: left antecubital; ls4 18:20 Follow up: IV Status: Completed infusion; IV Intake: 1000ml ls4 Disposition: 10/01/19 20:16 Discharged to Home. Impression: Poisoning by, adverse effect of and underdosing of other and unspecified drugs, medicaments and biological substances. - Condition is Stable. - Discharge Instructions: Accidental Overdose. - Medication Reconciliation Form, Thank You Letter, Antibiotic Education, Prescription Opioid Use form. - Follow up: Private Physician; When: Upon discharge from the Emergency Department; Reason: Recheck today's complaints, Continuance of care, Re-evaluation by your physician. - Problem is new. - Symptoms have improved. Signatures: Dispatcher [employer] EDMS Maurilio Ramirez MD MD rn Wadley, Terrence, MD MD tw4 Trang Arredondo RN RN ls4 Corrections: (The following items were deleted from the chart) 17:17 17:13 Constitutional: Negative for fever, chills, and weight loss, Eyes: Negative for rn injury, pain, redness, and discharge, Neck: Negative for injury, pain, and swelling, Cardiovascular: Negative for chest pain, palpitations, and edema, Respiratory: Negative for shortness of breath, cough, wheezing, and pleuritic chest pain, Abdomen/GI: Negative for abdominal pain, nausea, vomiting, diarrhea, and constipation, MS/Extremity: Negative for injury and deformity, Skin: Negative for injury, rash, and discoloration, Neuro: Negative for headache, weakness, numbness, tingling, and seizure, rn 20:38 20:16 10/01/2019 20:16 Discharged to Home. Impression: Poisoning by, adverse effect of ls4 and underdosing of other and unspecified drugs, medicaments and biological substances. Condition is Stable. Forms are Medication Reconciliation Form, Thank You Letter, Antibiotic Education, Prescription Opioid Use. Follow up: Private Physician; When: Upon discharge from the Emergency Department; Reason: Recheck today's complaints, Continuance of care, Re-evaluation by your physician. Problem is new. Symptoms have improved. tw4 21:55 20:38 10/01/2019 20:16 Discharged to Home. Impression: Poisoning by, adverse effect of ls4 and underdosing of other and unspecified drugs, medicaments and biological substances. Condition is Stable. Discharge Instructions: Accidental Overdose. Forms are Medication Reconciliation Form, Thank You Letter, Antibiotic Education, Prescription Opioid Use. Follow up: Private Physician; When: Upon discharge from the Emergency Department; Reason: Recheck today's complaints, Continuance of care, Re-evaluation by your physician. Problem is new. Symptoms have improved. ls4
[2019-10-01 22:24] VITALS: TEMP 97.9
[2019-10-01 22:31] VITALS: BP 178/99; O2SAT 98
--- NOTE | 2019-10-03 07:03 | EKG ---
Test Date: 2019-10-01 Test Time: 17:17:00 Fabric Cutter: KEN MEASUREMENT RESULTS: Intervals: Rate: 52 TN: 196 QRSD: 88 QT: 454 QTc: 422 [place]: P: 59 TN: 196 QRS: 40 T: 113 INTERPRETIVE STATEMENTS: Sinus bradycardia T wave abnormality, consider lateral ischemia Abnormal ECG Compared to ECG 08/21/2018 18:28:38 Sinus rhythm no longer present T-wave abnormality still present Possible ischemia still present Electronically Signed On 10-03-19 07:00:32 CDT by Mitul Mcdonald
== END 2019-10-01 21:55 | disposition home or self-care (01) ==
LOC: ER 17:01
DX: T46.5X1A Poisoning by other antihypertensive drugs, accidental (unintentional), initial encounter (principal); I10 Essential (primary) hypertension; I25.10 Atherosclerotic heart disease of native coronary artery without angina pectoris
CPT/HCPCS: 36415; 71045; 80048; 84484; 85025; 93005; 96360; 99285; J7030

== ENCOUNTER 2019-10-03 08:11 | Inpatient (IN) | payer SELFPAY ==
[2019-10-03] MEDS ORDERED: AMLODIPINE 5 MG TAB ONE (09:07)
[2019-10-03] MEDS ORDERED: carvediloL 6.25 MG TAB ONE (09:07)
[2019-10-03] MEDS ORDERED: lisinopriL 10 MG TAB ONE (09:08)
--- NOTE | 2019-10-03 09:14 | RAD REPORT ---
EXAM DESCRIPTION: CT - Head Brain Wo Cont - 10/03/2019 9:04 am CLINICAL HISTORY: Numbness COMPARISON: 2014 TECHNIQUE: Computed axial tomography of the head was obtained. IV contrast was not requested. All CT scans are performed using dose optimization technique as appropriate and may include automated exposure control or mA/KV adjustment according to patient size. FINDINGS: An intracranial bleed is not seen . The ventricles are normal in caliber. No extra-axial fluid collection is noted. 3 millimeter low-density area has developed within the left thalamus Mild low-density areas within periventricular, deep and subcortical white matter likely represent isc hemic changes secondary to small vessel disease. Fluid within the sinuses/ mastoids is not seen. Mild chronic sinusitis present IMPRESSION: 3 millimeter low-density area within the left thalamus probably a lacunar infarction. Ag e is indeterminate. If clinically indicated further evaluation with MRI could be obtained
--- NOTE | 2019-10-03 10:47 | EKG ---
Test Date: 2019-10-03 Test Time: 08:27:32 Septic Tank Service Technician: BARRETT MEASUREMENT RESULTS: Intervals: Rate: 67 AZ: 196 QRSD: 88 QT: 402 QTc: 424 Lucas: P: 41 AZ: 196 QRS: 34 T: 114 INTERPRETIVE STATEMENTS: Normal sinus rhythm ST & T wave abnormality, consider lateral ischemia Abnormal ECG Compared to ECG 10/01/2019 17:17:00 ST (T wave) deviation now present Sinus bradycardia no longer present T-wave abnormality no longer present Possible ischemia still present Electronically Signed On 10-03-19 10:47:03 CDT by Mitul Mcdonald
--- NOTE | 2019-10-03 11:20 | RAD REPORT ---
EXAM DESCRIPTION: MRI - Brain W/Wo Cont - 10/03/2019 11:00 am CLINICAL HISTORY: Numbness COMPARISON: October 03, [address] TECHNIQUE: Axial, sagittal, and coronal magnetic images of the brain were obtained. 20 cc MultiHance administered intravenously FINDINGS: Mild signal within periventricular, deep and subcortical white matter probably ischemic c hanges secondary to small vessel disease Small low-density area within the left thalamus compatible with an old lacunar infarction The ventricles are normal in caliber. Diffusion-weighted/ ADC mapping sequences demonstrate abnormal signal within the right cerebellum com patible with acute infarction No abnormal enhancement within the brain is seen. An extra-axial fluid collection is not noted. Fluid within the sinuses/mastoids is not seen IMPRESSION: Acute right cerebellar infarction
--- NOTE | 2019-10-03 11:30 | RAD REPORT ---
EXAM DESCRIPTION: MRI - MRA Head Wo Cont - 10/03/2019 11:00 am CLINICAL HISTORY: Numbness COMPARISON: None. TECHNIQUE: Magnetic resonance angiogram was performed. 3D MIPS reconstruction performed FINDINGS: The anterior cerebral, middle cerebral, posterior cerebral, distal internal carotid and ba silar arteries do not demonstrate a significant stenosis. origin left posterior cerebral artery An aneurysm is not displayed. IMPRESSION: No acute abnormality displayed
--- NOTE | 2019-10-03 11:40 | RAD REPORT ---
EXAM DESCRIPTION: MRI - MRA Neck W/Wo Cont - 10/03/2019 11:01 am CLINICAL HISTORY: Numbness COMPARISON: None. TECHNIQUE: Magnetic resonance angiogram of the neck was performed. 20 cc MultiHance was administered intravenously. 3D MIPS reconstruction performed FINDINGS: The common carotid, internal carotid and external carotid arteries do not demonstrate a si gnificant stenosis. An aneurysm is not seen. The left vertebral artery is normal. The distal right vertebral artery is normal. Signal is not seen within the remainder of the right grecia tebral artery. IMPRESSION: Signal is not visualized within most of the right vertebral artery. This is commonly see n with a very hypoplastic vertebral artery. A dissection can have a similar appearance but probably i s less likely. If clinically indicated further evaluation with CT angiogram could be obtained NASCET criteria used. Mild 0-49% stenosis Moderate 50-69% stenosis Severe 70-99% stenosis
[2019-10-03] MEDS ORDERED: ASPIRIN 81 MG CHEWABLE TABLET ONE (11:44)
[2019-10-03] MEDS ORDERED: FOLIC ACID 1 MG TABLET ONE (11:44)
--- NOTE | 2019-10-03 11:45 | EDPHYS ---
Physician Documentation [facility] Name: José Beck Age: 49 yrs Sex: Male : 1970 Arrival Date: 10/03/2019 Time: 08:18 Bed 20 Private MD: ED Physician Tylor Pritchard HPI: 10/02 08:32 This 49 yrs old Male presents to ER via EMS with complaints of Numbness Of Arm.snw 08:32 The patient or guardian complains of right arm numb/tingly. The complaints affect the snw right arm. Context: The problem was sustained at home, resulted from increased blood pressure. Onset: The symptoms/episode began/occurred today. Associated signs and symptoms: Pertinent positives: tingling. Severity of symptoms: At their worst the symptoms were mild. The patient has been recently seen by a physician: pt accidentally took too much HTN medication on Wednesday, instructed to not take antihypertensives x a few days. . Historical: - Allergies: 08:25 No Known Drug Allergies; ph - Home Meds: 08:25 carvedilol 6.25 mg Oral tab [Active]; lisinopril 40 mg Oral tab 1 tab once daily ph [Active]; metoprolol succinate 100 mg Oral Tb24 1 tab once daily [Active]; - PMHx: 08:25 CAD; Hypertension; ph - Immunization history:: Adult Immunizations unknown. - Social history:: Smoking status: Patient denies any tobacco usage or history of. ROS: 08:32 Constitutional: Negative for fever, chills, and weight loss, Eyes: Negative for injury, snw pain, redness, and discharge, ENT: Negative for injury, pain, and discharge, Neck: Negative for injury, pain, and swelling, Cardiovascular: Negative for chest pain, palpitations, and edema, Respiratory: Negative for shortness of breath, cough, wheezing, and pleuritic chest pain, Abdomen/GI: Negative for abdominal pain, nausea, vomiting, diarrhea, and constipation, Back: Negative for injury and pain, : Negative for injury, bleeding, discharge, and swelling, MS/Extremity: Negative for injury and deformity, Neuro: Negative for headache, weakness, numbness, tingling, and seizure, Psych: Negative for depression, anxiety, suicide ideation, homicidal ideation, and hallucinations. 08:32 Skin: Positive for tingly right arm, increased BP, denies chest pain or other c/o. Exam: 08:32 Constitutional: This is a well developed, well nourished patient who is awake, alert, snw and in no acute distress. Head/Face: Normocephalic, atraumatic. Eyes: Pupils equal round and reactive to light, extra-ocular motions intact. Lids and lashes normal. Conjunctiva and sclera are non-icteric and not injected. Cornea within normal limits. Periorbital areas with no swelling, redness, or edema. ENT: Nares patent. No nasal discharge, no septal abnormalities noted. Tympanic membranes are normal and external auditory canals are clear. Oropharynx with no redness, swelling, or masses, exudates, or evidence of obstruction, uvula midline. Mucous membranes moist. Neck: Trachea midline, no thyromegaly or masses palpated, and no cervical lymphadenopathy. Supple, full range of motion without nuchal rigidity, or vertebral point tenderness. No Meningismus. Chest/axilla: Normal chest wall appearance and motion. Nontender with no deformity. No lesions are appreciated. Cardiovascular: Regular rate and rhythm with a normal S1 and S2. No gallops, murmurs, or rubs. Normal PMI, no JVD. No pulse deficits. Respiratory: Lungs have equal breath sounds bilaterally, clear to auscultation and percussion. No rales, rhonchi or wheezes noted. No increased work of breathing, no retractions or nasal flaring. Abdomen/GI: Soft, non-tender, with normal bowel sounds. No distension or tympany. No guarding or rebound. No evidence of tenderness throughout. Back: No spinal tenderness. No costovertebral tenderness. Full range of motion. Skin: Warm, dry with normal turgor. Normal color with no rashes, no lesions, and no evidence of cellulitis. Neuro: Awake and alert, GCS 15, oriented to person, place, time, and situation. Cranial nerves II-XII grossly intact. Motor strength 5/5 in all extremities. Sensory grossly intact. Cerebellar exam normal. Normal gait. Psych: Awake, alert, with orientation to person, place and time. Behavior, mood, and affect are within normal limits. 08:32 Musculoskeletal/extremity: the right arm Tingling of extremity. 08:58 ECG was reviewed by the Attending Physician. snw Vital Signs: 08:19 BP 201 / 114; Pulse 68; Resp 18; Temp 97.8; Pulse Ox 97% on R/A; Weight 122.47 kg; ph Height 5 ft. 9 in. (175.26 cm); Pain 0/10; 08:30 BP 184 / 108; Pulse 65; Resp 17; Pulse Ox 98% on R/A; tw2 11:13 BP 188 / 109; Pulse 64; Resp 17; Pulse Ox 97% on R/A; tw2 12:00 BP 164 / 106; Pulse 65; Resp 17; Pulse Ox 98% on R/A; tw2 12:58 BP 177 / 98; Pulse 65; Resp 17; Pulse Ox 97% on R/A; tw2 08:19 Body Mass Index 39.87 (122.47 kg, 175.26 cm) ph NIH Stroke Scale Scores: 09:20 NIHSS Score: 1 ph MDM: 08:19 Patient medically screened. snw 08:54 Data reviewed: vital signs, nurses notes. Data interpreted: Pulse oximetry: on room air snw is 97 %. Interpretation: normal. Counseling: I had a detailed discussion with the patient and/or guardian regarding: the historical points, exam findings, and any diagnostic results supporting the discharge/admit diagnosis, the presence of at least one elevated blood pressure reading (>120/80) during this emergency department visit. Physician consultation: Mitul Mcdonald MD was called at 08:30, was contacted at 08:40, regarding consult, patient's condition, outpatient follow-up, instructed to give pt regular medications and then have him follow up in office . 11:03 ED course: returned to ED in no distress. snw 11:32 Physician consultation: Kennedy Mcghee MD was called at 11:32, was contacted at 11:32, snw regarding consult, would like medications started, folic acid 1mg po and Aspirin 81mg po. 11:44 Physician consultation: Anup Walsh DO was called at 11:44, was contacted at 11:44, snw regarding admission, to the telemetry unit. 13:12 ED course: TPA not given for uncontrolled hypertension and awoke with s/s or right arm snw numbness. 10/02 11:38 Order name: CBC with Diff; Complete Time: 12:29 snw 10/02 11:38 Order name: Chem 7; Complete Time: 12:44 snw 10/02 11:38 Order name: Lipid Profile; Complete Time: 12:44 snw 10/02 11:38 Order name: LFT's; Complete Time: 12:44 snw 10/02 11:38 Order name: UDS snw 10/02 11:38 Order name: PT-INR; Complete Time: 12:29 snw 10/02 08:51 Order name: CT Head Brain wo Cont; Complete Time: 09:15 snw 10/02 10:21 Order name: MRA Head Wo Cont; Complete Time: 11:35 EDMS 10/02 10:21 Order name: MRA Neck W/Wo Cont; Complete Time: 11:43 EDMS 10/02 10:21 Order name: Brain W/Wo Cont; Complete Time: 11:26 EDMS 10/02 11:38 Order name: Troponin (emerg Dept Use Only); Complete Time: 12:44 snw 10/02 11:38 Order name: BNP; Complete Time: 12:44 snw 10/02 08:41 Order name: EKG Electrocardiogram EDMS EC:58 Rhythm is regular. QRS [place] is Normal. [place] interval is normal. QRS interval is normal. snw QT interval is normal. No Q waves. T waves are Flattened in leads V5, V6. Clinical impression: NSR w/ Non-specific ST/T Changes. Reviewed by me. Administered Medications: 09:24 Drug: carvedilol 25 mg Route: PO; ph 11:36 Follow up: Response: No adverse reaction; Blood pressure is lowered tw2 09:24 Drug: amLODIPine 5 mg Route: PO; ph 11:35 Follow up: Response: No adverse reaction tw2 09:24 Drug: Lisinopril 10 mg Route: PO; ph 11:35 Follow up: Response: No adverse reaction tw2 10:40 Drug: foLIC Acid 1 mg Route: PO; tw2 14:58 Follow up: Response: No adverse reaction ph 10:40 Drug: Aspirin 81 mg Route: PO; tw2 14:58 Follow up: Response: No adverse reaction ph Disposition: 16:12 Co-signature as Attending Physician, Tylor Pritchard MD I agree with the assessment and kdr plan of care. Disposition: 10/03/19 11:45 Hospitalization ordered by Anup Walsh for Observation. Preliminary diagnosis is Cerebellar stroke syndrome. - Bed requested for Telemetry/MedSurg (observation). - Status is Observation. tw2 - Condition is Stable. - Problem is new. - Symptoms are unchanged. NIH Stroke Scale - NIH Stroke Score Date: 10/03/2019 Time: 09:20 Total Score = 1 1a. Level of Consciousness (LOC) - 0(Alert) 1b. Level of Consciousness (LOC) (Year \T\ Age) - 0(Both) 1c. LOC Commands (Open \T\ Closes Eyes/Library Specialist) - 0(Both) 2. Best Gaze (Lateral Gaze Paresis) - 0(Normal) 3. Visual Field Loss - 0(No visual loss) 4. Facial Palsy - 0(Normal) 5a. Left Arm: Motor (10-second hold) - 0(No drift) 5b. Right Arm: Motor (10-second hold) - 0(No drift) 6a. Left Leg: Motor (5-second hold - always test supine) - 0(No drift) 6b. Right Leg: Motor (5-second hold - always test supine) - 0(No drift) 7. Limb Ataxia (finger/nose \T\ heel/cervantes - test with eyes open) - 0(Absent) 8. Sensory Loss (pinprick arms/legs/face) - 1(Mild to moderate loss) 9. Best Language: Aphasia (description/naming/reading) - 0(No aphasia) 10. Dysarthria (speech clarity - read or repeat words) - 0(Normal) 11. Extinction and Inattention (visual/tactile/auditory/spatial/personal) - 0(No abnormality) Initials: ph Signatures: Dispatcher [employer] EDMS Fern Arriaza Kevin, MD MD [facility] Azalia Lilly, PROTECTION CONSULTANT-C PROTECTION CONSULTANT-Csnw Lanette Augustine RN RN ph Sravani Conteh RN RN tw2 Grupo Yusuf, RN RN ja1 Corrections: (The following items were deleted from the chart) 10:20 09:17 MR STROKE PROTOCOL+MRI.RAD.BRZ ordered. EDMS EDMS 12:47 11:45 Hospitalization Ordered by Anup Walsh DO for Observation. Preliminary bd diagnosis is Cerebellar stroke syndrome. Bed requested for Telemetry/MedSurg (observation). Status is Observation. Condition is Stable. Problem is new. Symptoms are unchanged. snw 12:48 12:47 10/03/2019 11:45 Hospitalization Ordered by Anup Walsh DO for ja1 Observation. Preliminary diagnosis is Cerebellar stroke syndrome. Bed requested for Telemetry/MedSurg (observation). Status is Observation. Condition is Stable. Problem is new. Symptoms are unchanged. bd 13:09 12:48 10/03/2019 11:45 Hospitalization Ordered by Anup Walsh DO for tw2 Observation. Preliminary diagnosis is Cerebellar stroke syndrome. Bed requested for Telemetry/MedSurg (observation). Status is Observation. Condition is Stable. Problem is new. Symptoms are unchanged. ja1
--- NOTE | 2019-10-03 11:45 | ER ---
Nurse's Notes [facility] Name: José Beck Age: 49 yrs Sex: Male : 1970 Arrival Date: 10/03/2019 Time: 08:18 Bed 20 Private MD: Diagnosis: Cerebellar stroke syndrome Presentation: 10/02 08:19 Chief complaint: EMS states: Reports R arm numbness that began last night, states that ph he accidentally overdosed on his BP medication on Wednesday and was instructed by Dr not to take any more medication, has follow up w/ Harry today, BP 220/138 for EMS, pt denies pain or weakness, normal stroke scale, normally takes carvedilol, amlodipine, and lisinopril once a day. Coronavirus screen: Patient denies a cough. Patient denies shortness of breath or difficulty breathing. Patient denies measured and/or subjective temperature greater than 100.4F prior to today's visit. Patient denies travel on a cruise ship or to a country the [facility] currently lists as an affected area. Patient denies contact with known and/or suspected case of COVID-19. Ebola Screen: No symptoms or risks identified at this time. Initial Sepsis Screen: Does the patient meet any 2 criteria? No. Patient's initial sepsis screen is negative. Does the patient have a suspected source of infection? No. Patient's initial sepsis screen is negative. Risk Assessment: Do you want to hurt yourself or someone else? Patient reports no desire to harm self or others. Onset of symptoms was October 03, 2019. 08:19 Method Of Arrival: EMS: [facility] ph 08:19 Acuity: MICHELLE 3 ph Historical: - Allergies: 08:25 No Known Drug Allergies; ph - Home Meds: 08:25 carvedilol 6.25 mg Oral tab [Active]; lisinopril 40 mg Oral tab 1 tab once daily ph [Active]; metoprolol succinate 100 mg Oral Tb24 1 tab once daily [Active]; - PMHx: 08:25 CAD; Hypertension; ph - Immunization history:: Adult Immunizations unknown. - Social history:: Smoking status: Patient denies any tobacco usage or history of. Screenin:29 Abuse screen: Denies threats or abuse. Denies injuries from another. Nutritional ph screening: No deficits noted. Tuberculosis screening: No symptoms or risk factors identified. Fall Risk None identified. Assessment: 08:27 General: Appears in no apparent distress. comfortable, well groomed, Behavior is calm, ph cooperative, appropriate for age, Reports fatigue for Denies fever, feeling ill, chills. Pain: Denies pain. Neuro: Level of Consciousness is awake, alert, obeys commands, Oriented to person, place, time, situation, Office Services Representative are equal bilaterally Moves all extremities. Full function Gait is steady, Speech is normal, Facial symmetry appears normal, Pupils are PERRLA, Reports paresthesias in right arm Denies weakness blurred vision dizziness, headache. Cardiovascular: Reports fatigue, Denies chest pain, nausea, palpitations, shortness of breath, Capillary refill < 3 seconds in bilateral fingers Patient's skin is warm and dry. Rhythm is sinus rhythm. Respiratory: Airway is patent Respiratory effort is even, unlabored. Derm: Skin is intact, is healthy with good turgor, Skin is pink, warm \T\ dry. Musculoskeletal: Circulation, motion, and sensation intact. Range of motion: intact in all extremities. 09:24 Reassessment: Patient appears in no apparent distress at this time. Patient and/or ph family updated on plan of care and expected duration. Pain level reassessed. Patient is alert, oriented x 3, equal unlabored respirations, skin warm/dry/pink. Pt resting comfortably, denies pain at this time, oral medications for BP administered, awaiting MRI, will continue to monitor. 11:14 Reassessment: Patient appears in no apparent distress at this time. No changes from tw2 previously documented assessment. Patient and/or family updated on plan of care and expected duration. Pain level reassessed. Patient is alert, oriented x 3, equal unlabored respirations, skin warm/dry/pink. 12:00 Reassessment: Patient appears in no apparent distress at this time. No changes from tw2 previously documented assessment. Patient and/or family updated on plan of care and expected duration. Pain level reassessed. Patient is alert, oriented x 3, equal unlabored respirations, skin warm/dry/pink. 13:04 Reassessment: Patient appears in no apparent distress at this time. No changes from tw2 previously documented assessment. Patient and/or family updated on plan of care and expected duration. Pain level reassessed. Patient is alert, oriented x 3, equal unlabored respirations, skin warm/dry/pink. Vital Signs: 08:19 BP 201 / 114; Pulse 68; Resp 18; Temp 97.8; Pulse Ox 97% on R/A; Weight 122.47 kg; ph Height 5 ft. 9 in. (175.26 cm); Pain 0/10; 08:30 BP 184 / 108; Pulse 65; Resp 17; Pulse Ox 98% on R/A; tw2 11:13 BP 188 / 109; Pulse 64; Resp 17; Pulse Ox 97% on R/A; tw2 12:00 BP 164 / 106; Pulse 65; Resp 17; Pulse Ox 98% on R/A; tw2 12:58 BP 177 / 98; Pulse 65; Resp 17; Pulse Ox 97% on R/A; tw2 08:19 Body Mass Index 39.87 (122.47 kg, 175.26 cm) ph NIH Stroke Scale Scores: 09:20 NIHSS Score: 1 ph ED Course: 08:18 Patient arrived in ED. ph 08:19 Azalia Lilly FNP-C is PHCP. snw 08:19 Tylor Pritchard MD is Attending Physician. snw 08:23 Triage completed. ph 08:25 Arm band placed on. ph 08:29 Patient has correct armband on for positive identification. Bed in low position. Call ph light in reach. Side rails up X 1. threat monitoring analyst on. Pulse ox on. NIBP on. Door closed. Noise minimized. Warm blanket given. 08:30 EKG done, by technology assistant. reviewed by Azalia VILLA. at1 08:57 Lanette Augustine, RN is Primary Nurse. ph 09:05 CT Head Brain wo Cont In Process Unspecified. EDMS 09:34 Primary Nurse role handed off by Lanette Augustine, GINO tw2 09:34 Sravani Conteh RN is Primary Nurse. tw2 10:59 MRA Head Wo Cont In Process Unspecified. EDMS 10:59 MRA Neck W/Wo Cont In Process Unspecified. EDMS 10:59 Brain W/Wo Cont In Process Unspecified. EDMS 11:44 Anup Walsh DO is Hospitalizing Provider. snw 13:00 No provider procedures requiring assistance completed. Patient admitted, IV remains in tw2 place. Administered Medications: 09:24 Drug: carvedilol 25 mg Route: PO; ph 11:36 Follow up: Response: No adverse reaction; Blood pressure is lowered tw2 09:24 Drug: amLODIPine 5 mg Route: PO; ph 11:35 Follow up: Response: No adverse reaction tw2 09:24 Drug: Lisinopril 10 mg Route: PO; ph 11:35 Follow up: Response: No adverse reaction tw2 10:40 Drug: foLIC Acid 1 mg Route: PO; tw2 14:58 Follow up: Response: No adverse reaction ph 10:40 Drug: Aspirin 81 mg Route: PO; tw2 14:58 Follow up: Response: No adverse reaction ph Outcome: 11:45 Decision to Hospitalize by Provider. snw 13:04 Admitted to Med/surg accompanied by yasmin, via stretcher, room 426, with chart, Report tw2 called to GINO Martines 13:04 Condition: stable 13:04 Instructed on the need for admit. 13:09 Patient left the ED. tw2 NIH Stroke Scale - NIH Stroke Score Date: 10/03/2019 Time: :20 Total Score = 1 1a. Level of Consciousness (LOC) - 0(Alert) 1b. Level of Consciousness (LOC) (Year \T\ Age) - 0(Both) 1c. LOC Commands (Open \T\ Closes Eyes/Outside Upholsterer) - 0(Both) 2. Best Gaze (Lateral Gaze Paresis) - 0(Normal) 3. Visual Field Loss - 0(No visual loss) 4. Facial Palsy - 0(Normal) 5a. Left Arm: Motor (10-second hold) - 0(No drift) 5b. Right Arm: Motor (10-second hold) - 0(No drift) 6a. Left Leg: Motor (5-second hold - always test supine) - 0(No drift) 6b. Right Leg: Motor (5-second hold - always test supine) - 0(No drift) 7. Limb Ataxia (finger/nose \T\ heel/cervantes - test with eyes open) - 0(Absent) 8. Sensory Loss (pinprick arms/legs/face) - 1(Mild to moderate loss) 9. Best Language: Aphasia (description/naming/reading) - 0(No aphasia) 10. Dysarthria (speech clarity - read or repeat words) - 0(Normal) 11. Extinction and Inattention (visual/tactile/auditory/spatial/personal) - 0(No abnormality) Initials: ph Signatures: Dispatcher [employer] EDAzalia Gonzalez, ALLEN CROSS COUNTRY COACH-Csnw Gemini Craig, industrial mechanic EKG Tat1 Lanette Augustine, RN RN ph Sravani Conteh RN RN tw2 Corrections: (The following items were deleted from the chart) 16:05 13:08 Reassessment: Patient appears in no apparent distress at this time. No tw2 changes from previously documented assessment. Patient and/or family updated on plan of care and expected duration. Pain level reassessed. Patient is alert, oriented x 3, equal unlabored respirations, skin warm/dry/pink. tw2
[2019-10-03 12:23] LABS: Absolute Lymphocytes (CBC) 1.9 K/uL (0.7-4.9); Basophils % 0.1 % (0-1.3); Hematocrit 45.6 % (39.6-49.0); MPV 9.2 fL (7.6-11.3); RBC Red Blood Cell Count 4.96 M/uL (4.33-5.43)
[2019-10-03 12:27] LABS: Protime INR 1.03
--- NOTE | 2019-10-03 12:35 | P.HP ---
Certification for Inpatient Patient admitted to: Inpatient With expected LOS: >2 Midnights Patient will require the following post-hospital care: Other (Home health with physical therapy verses inpatient rehab) Practitioner: I am a practitioner with admitting privileges, knowledge of patient current condition, hospital course, and medical plan of care. Services: Services provided to patient in accordance with Admission requirements found in Title 42 Section 412.3 of the Code of Federal Regulations Patient History Date of Service: 10/03/19 Primary Care Provider: Daniella Meza NP; Cardiology-Dr. Mcdonald Reason for admission: Ataxia History of Present Illness: 49-year-old male with history of CAD, hypertension and systolic congestive heart failure. Patient reports that he came on Wednesday due to low blood pressure. He apparently was using too much of his blood pressure medication. At that time it was recommended to hold all his medication. He was to follow up with Cardiology today but this morning around 3:00 a.m. he reported some ataxia. He felt very unsteady. He denied any significant chest pain, shortness of breath. The unsteadiness worsened so he came to the ER for further evaluation. In the ER patient was evaluated. Blood pressures were elevated in the 220 systolic range. CBC BMP pending. CT scan showed abnormality. MRI confirmed acute cerebellar infarct. Patient currently stable this time. Patient was given medication for blood pressure in the emergency room. Blood pressure now 177/98. Patient stable this time. When I saw the patient ER, he appeared stable. No significant chest pain, shortness of breath noted. No weakness, slurred speech. Patient admits history of alcohol use and prior cocaine/marijuana use. He reported using cocaine and marijuana 2 weeks ago. Allergies No Known Drug Allergies Allergy (Verified 08/21/18 18:08) Unknown Home medications list reviewed: Yes Home Medications: Guaifenesin/D-Methorphan Hb/PE [Mucinex Fast-Max Congest-Cough] 2 tab PO Q4H 08/21/18 Metoprolol Succinate [Toprol Xl] 1 tab PO DAILY 08/21/18 lisinopriL [Prinivil*] 40 mg PO DAILY 08/21/18 Albuterol Inhaler [Ventolin Inhaler*] 2 puff IH Q6H PRN #1 hfa.aer.ad 08/22/18 Mometasone/Formoterol [Dulera 100 Mcg/5 Mcg Inhaler] 2 puff IH BID #1 inhaler 08/22/18 predniSONE [Deltasone*] 10 mg PO BID #10 tab 08/22/18 - Past Medical/Surgical History Diabetic: No -: Hypertension -: Chronic systolic CHF, EF 25% -: Hyperlipidemia -: Cocaine abuse -: Marijuana use -: Alcohol use Past Surgical History: Reviewed- Non-Contributory Psychosocial/ Personal History: Patient is . 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 - Family History Family History: Reviewed- Non-Contributory - Family History Father -: Heart disease Brother -: Heart disease - Social History Smoking Status: Never smoker Alcohol use: Yes CD- Drugs: Yes Caffeine use: No Place of Residence: Home Review of Systems General: As per HPI Eyes: Unremarkable ENT: Unremarkable Respiratory: Unremarkable Cardiovascular: Light Headedness, As per HPI Gastrointestinal: Unremarkable Genitourinary: Unremarkable Musculoskeletal: Unremarkable Integumentary: Unremarkable Neurological: As per HPI Lymphatics: Unremarkable Physical Examination - Physical Exam General: Alert, In no apparent distress, Oriented x3, Cooperative HEENT: Atraumatic, Normocephalic, Mucous membr. moist/pink Neck: Supple Respiratory: Clear to auscultation bilaterally, Normal air movement Cardiovascular: Normal pulses, Regular rate/rhythm Gastrointestinal: Normal bowel sounds, Soft and benign, Non-distended, No tenderness, No masses, No rebound, No guarding Musculoskeletal: No erythema, No tenderness, No warmth Integumentary: No tenderness/swelling, No erythema, No warmth, No cyanosis Neurological: Normal speech, Normal strength at 5/5 x4 extr, Normal tone, Normal affect, Other (Patient reports unsteadiness when ambulating) Assessment and Plan - Plan Impression: Unsteadiness/ataxia secondary to acute cerebellar infarct Hypertensive urgency Chronic systolic CHF, EF around 25% Hyperlipidemia History of cocaine, marijuana use Alcohol use Plan: Patient will be admitted for further evaluation. Stroke protocol to be initiated. ER spoke to neurology. Will start aspirin, Plavix, folic acid and blood pressure medication. Will maintain blood pressure systolic around 170. Will slowly get it better controlled over time. May need to recent start most of his medications. Will order physical therapy, speech evaluation. Neurology has been consulted. Case discussed with cardiology who also has been consulted. Obtain echocardiogram, carotid Doppler. MRI and CT scan reviewed. Await lab. Will also evaluate for drug use. Will continue DVT prophylaxis-Lovenox. Will monitor closely. Patient may end up requiring inpatient rehab versus home health and physical therapy. Will discuss with case management and social work tomorrow. Will continue to monitor closely. Will review and obtain home medication. Will monitor on telemetry. Discharge Plan: Other (Home with home health verses inpatient rehab) Plan to discharge in: 48 Hours - Advance Directives Does patient have a Living Will: No Does patient have a Durable POA for Healthcare: No - Code Status/Comfort Care Code Status Assessed: Yes (Patient is full code) Time Spent Managing Pts Care (In Minutes): 55
[2019-10-03 12:40] LABS: ALT/SGPT 56 U/L (12-78); AST/SGOT 27 U/L (15-37); Albumin 4.2 g/dL (3.4-5.0); Alkaline Phosphatase 80 U/L (45-117); BUN Blood Urea Nitrogen 12 mg/dL (7-18); Bicarbonate 27 mmol/L (21-32); Bilirubin Direct 0.2 mg/dL (0-0.2); Bilirubin Total 0.6 mg/dL (0.2-1.0); Glucose Level 127 mg/dL (74-106); HDL Cholesterol 53 mg/dL (40-60); LDL Cholesterol, Calculated 124 (<130); NT PRO-BNP 124 pg/mL (<125); Potassium 3.9 mmol/L (3.5-5.1); Protein, Total 8.7 g/dL (6.4-8.2); Sodium Level 136 mmol/L (136-145); Troponin (Emerg Dept Use Only) 0.02 ng/mL (0.0-0.045)
[2019-10-03] MEDS ORDERED: ACETAMINOPHEN 500 MG TAB PO PRN (13:05)
--- NOTE | 2019-10-03 13:53 | RAD REPORT ---
EXAM DESCRIPTION: RAD - Chest Pa And Lat (2 Views) - 10/03/2019 1:47 pm CLINICAL HISTORY: Stroke Chest pain. COMPARISON: Chest Single View dated 10/01/2019; Chest Single View dated 08/21/2018; CHEST SINGLE VIEW d ated 04/27/2014; CHEST SINGLE VIEW dated 04/17/2014 FINDINGS: The lungs are clear. The heart is normal in size. No displaced fractures. IMPRESSION: No acute or concerning finding suspected.
[2019-10-03 14:38] VITALS: BMI 39.9
[2019-10-03] MEDS: carvediloL 12.5 MG TAB PO SCH (17:40)
[2019-10-03 18:54] LABS: Barbiturates NEGATIVE (NEGATIVE); Benzodiazepines NEGATIVE (NEGATIVE); Cocaine POSITIVE (NEGATIVE); METHAMPHETAM NEGATIVE (NEGATIVE); Methadone NEGATIVE (NEGATIVE); Opiates NEGATIVE (NEGATIVE); Phencyclidine NEGATIVE (NEGATIVE); THC Cannibis NEGATIVE (NEGATIVE)
[2019-10-03] MEDS ORDERED: POTASSIUM 25 MEQ EFFERV TAB PO ONE (19:00)
[2019-10-03] MEDS: FAMOTIDINE 20 MG TAB PO SCH (19:54)
[2019-10-03] MEDS: lisinopriL 20 MG TAB PO SCH (19:54)
[2019-10-03] MEDS: ATORVASTATIN 80 MG TAB PO SCH (19:54)
--- NOTE | 2019-10-04 00:21 | CON ---
Date of Consultation: 10/03/[address] Walsh on 10/03/2019. Reason For Consultation: Hypertension, congestive heart failure, and new CVA. History Of Present Illness: Mr. Beck is a 49-year-old male. I saw him last in 2014. He is known to have an ejection fraction of 22% to 25% and was supposed to be on Coreg, lisinopril, Lasix as well a s statin, but I have not seen him since then. He came into the emergency room today with a blood pre ssure of over 200 systolic, new onset right mild hemiparesis in the right leg and right arm. A CT sc an of the head and MRI so far have showed normal carotid flow, but he had a left thalamus lacunar inf arction. He continued to have some weakness in the right upper extremity and right lower extremity. He denied any chest pain, denied shortness of breath. Denied any nausea, vomiting, diaphoresis, PND , orthopnea, pedal edema, palpitations, or syncope. Past Medical History: Includes CAD, CHF, 25% ejection fraction in 2015, and hypertension. Allergies: NONE. Review of Systems: Negative. Social History: Positive for drug use and alcohol. Family History: Noncontributory. Medications: Medications presently include, 1.Norvasc. 2.Lisinopril. 3.Aspirin. 4.Lipitor. 5.Coreg. 6.Plavix. 7.Lovenox. Physical Examination: Vital Signs: His blood pressure was still 177/100. He was afebrile. He was in no acute distress. General: He was in sinus rhythm. He was still complaining of weakness in the right upper and lower extremity. HEENT: Negative. Neck: Supple, no bruit. Chest: Clear. Cardiac: Revealed a regular rhythm and rate. No murmurs, gallops, or rubs. Abdomen: Obese, but benign. Extremities: Revealed no clubbing, cyanosis, or edema. Diagnostic Data: Showed a white count of 13,000. EKG was unremarkable. Urine drug screen shows pos itive cocaine. CT of his head was mentioned earlier. Impression And Plan: 1.Lacunar infarction of the left thalamus secondary to severe hypertension. 2.Cocaine on drug screen consistent with drug abuse. 3.Significant noncompliance with medical therapy and follow up. I have not seen him for 5 years. 4.Cardiomyopathy, ejection fraction of 25%. Last echo was in 2014. Another echocardiogram is bre [place]. 5.Hypertension that is poorly controlled. Neurology is following him. I think we can increase his Norvasc. We can increase his Coreg and see how he does. We will see what the echocardiogram shows. HERMELINDO/DURAN Voice ID: [id number] Report ID: [id number]
[2019-10-04 04:19] LABS: Basophils % 0.2 % (0-1.3); MPV 9.2 fL (7.6-11.3); RBC Red Blood Cell Count 4.93 M/uL (4.33-5.43)
[2019-10-04 04:41] LABS: Magnesium 2.3 mg/dL (1.8-2.4); Potassium 4.1 mmol/L (3.5-5.1); Thyroid Stimulating Hormone 0.963 uIU/mL (0.360-3.740)
[2019-10-04] MEDS: carvediloL 12.5 MG TAB PO SCH (05:28)
[2019-10-04] MEDS: ASPIRIN EC 81 MG TAB PO SCH (08:20)
[2019-10-04] MEDS: ENOXAPARIN 40 MG/0.4 ML SQ SCH (08:21)
[2019-10-04] MEDS: lisinopriL 20 MG TAB PO SCH ×2 (08:21→20:50)
[2019-10-04] MEDS: CLOPIDOGREL 75 MG TABLET PO SCH (08:22)
[2019-10-04] MEDS: FOLIC ACID 1 MG TABLET PO SCH (08:22)
[2019-10-04] MEDS: FAMOTIDINE 20 MG TAB PO SCH ×2 (08:22→20:49)
[2019-10-04] MEDS ORDERED: AMLODIPINE 5 MG TAB PO SCH (09:00)
--- NOTE | 2019-10-04 15:57 | P.PN ---
Subjective Date of Service: 10/04/19 Primary Care Provider: Daniella Meza NP; Cardiology-Dr. Mcdonald Chief Complaint: Ataxia Subjective: Other (Patient doing slightly better. Still with ataxia and dizziness.) Physical Examination - Vital Signs Temperature: 97.2 F Blood Pressure: 189/98 Pulse: 55 Respirations: 16 Pulse Ox (%): 99 - Physical Exam General: Alert, In no apparent distress, Cooperative HEENT: Atraumatic Neck: Supple Respiratory: Clear to auscultation bilaterally, Normal air movement Cardiovascular: Normal pulses, Regular rate/rhythm Gastrointestinal: Normal bowel sounds, Soft and benign, Non-distended Neurological: Normal speech, Normal strength at 5/5 x4 extr, Normal tone - Studies Medications List Reviewed: Yes Assessment & Plan Discharge Plan: Home Plan to discharge in: 24 Hours Physician Review Additional Text: Impression: Unsteadiness/ataxia secondary to acute cerebellar infarct Hypertensive urgency with history of hypertension Chronic systolic CHF, EF around 25% Hyperlipidemia History of cocaine, marijuana use Alcohol use Plan: Unsteadiness/ataxia secondary to acute cerebellar infarct: Continue with aspirin, Plavix, folic acid and blood pressure medication. Case discussed with Neurology and Cardiology. Will increase Norvasc to 10 mg daily. Will also increase carvedilol to 25 mg twice daily. Will continue did have patient work with physical therapy. Patient does not have any funding therefore patient will not be able to go to inpatient rehab or skilled facility. Options are very limited. Anticipate improvement with physical therapy over the next day. Will discharge home once physical therapy reports that he is safe for discharge. Hypertensive urgency with history of hypertension: Case discussed with cardiology. Will adjust blood pressure medication for better control. Chronic systolic CHF, EF around 25%: Await echocardiogram. Continue with fluid restriction Hyperlipidemia: Continue with medication. History of cocaine, marijuana use: Cessation education addressed. Patient plans to quit. Alcohol use: Alcohol cessation education addressed. Time Spent Managing Pts Care (In Minutes): 55
[2019-10-04] MEDS ORDERED: HYDRALAZINE HCL 20 MG/ML VIAL IV PRN (16:33)
[2019-10-04] MEDS: ONDANSETRON 4 MG/2 ML VIAL IV PRN (16:38)
[2019-10-04] MEDS ORDERED: carvediloL 25 MG TAB PO SCH ×2 (18:00→19:33)
[2019-10-04] MEDS: ATORVASTATIN 80 MG TAB PO SCH (20:49)
[2019-10-04 21:13] VITALS: O2SAT 95
[2019-10-05 04:40] LABS: Absolute Lymphocytes (CBC) 2.5 K/uL (0.7-4.9); Basophils % 0.3 % (0-1.3); Hematocrit 46.1 % (39.6-49.0); Lymphocytes % 18.8 % (15.3-44.8); RBC Red Blood Cell Count 5.03 M/uL (4.33-5.43)
[2019-10-05 04:49] LABS: Magnesium 2.4 mg/dL (1.8-2.4); Potassium 3.8 mmol/L (3.5-5.1)
[2019-10-05] MEDS: ONDANSETRON 4 MG/2 ML VIAL IV PRN (07:32)
[2019-10-05] MEDS: FAMOTIDINE 20 MG TAB PO SCH (08:25)
[2019-10-05] MEDS: ASPIRIN EC 81 MG TAB PO SCH (08:26)
[2019-10-05] MEDS: FOLIC ACID 1 MG TABLET PO SCH (08:26)
[2019-10-05] MEDS: CLOPIDOGREL 75 MG TABLET PO SCH (08:26)
[2019-10-05] MEDS: lisinopriL 20 MG TAB PO SCH (08:26)
[2019-10-05] MEDS: ENOXAPARIN 40 MG/0.4 ML SQ SCH (08:27)
[2019-10-05] MEDS ORDERED: AMLODIPINE 10 MG TAB PO SCH ×2 (09:00)
[2019-10-05] MEDS ORDERED: POTASSIUM CL SA 10 MEQ TAB PO ONE (09:00)
--- NOTE | 2019-10-05 09:53 | ECHO ---
HEIGHT: 5 ft 9 in WEIGHT: 270 lb 0 oz DATE OF STUDY: 10/04/[address]: Anup Walsh DO 2-DIMENSIONAL: YES M.MODE: YES DOPPLER: YES COLOR FLOW: YES TDS: NO PORTABLE: NO DEFINITY: NO BUBBLE STUDY: NO DIAGNOSIS: STROKE CARDIAC HISTORY: CATHERIZATION: YES SURGERY: NO PROSTHETIC VALVE: NO PACEMAKER: NO MEASUREMENTS (cm) DIASTOLIC (NORMALS) SYSTOLIC (NORMALS) IVSd 1.1 (0.6-1.2) LA Diam 2.7 (1.9-4.0) LVEF 74% LVIDd 3.6 (3.5-5.7) LVIDs 2.1 (2.0-3.5) %FS 42% LVPWd 1.1 (0.6-1.2) Ao Diam 3.2 (2.0-3.7) 2 DIMENSIONAL ASSESSMENT: RIGHT ATRIUM: NORMAL LEFT ATRIUM: NORMAL RIGHT VENTRICLE: NORMAL LEFT VENTRICLE: NORMAL TRICUSPID VALVE: NORMAL MITRAL VALVE: NORMAL PULMONIC VALVE: NORMAL AORTIC VALVE: NORMAL PERICARDIAL EFFUSION: NONE AORTIC ROOT: NORMAL LEFT VENTRICULAR WALL MOTION: NORMAL DOPPLER/COLOR FLOW: NORMAL COMMENTS: NORMAL 2D ECHOCARDIOGRAM WITH DOPPLER. NO WALL MOTION ABNORMALITY. NO EFFUSION. NO THROMBUS. 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
--- NOTE | 2019-10-05 10:52 | P.PN ---
Subjective Date of Service: 10/05/19 Primary Care Provider: Daniella Meza NP; Cardiology-Dr. Mcdonald Chief Complaint: Ataxia Subjective: Other (Patient doing better. Dizziness and ataxia improved. Blood pressure better controlled) Physical Examination - Vital Signs Temperature: 97.5 F Blood Pressure: 162/93 Pulse: 60 Respirations: 20 Pulse Ox (%): 96 - Physical Exam General: Alert, In no apparent distress, Cooperative HEENT: Atraumatic Neck: Supple Respiratory: Clear to auscultation bilaterally, Normal air movement Cardiovascular: Normal pulses, Regular rate/rhythm Gastrointestinal: Normal bowel sounds, Soft and benign, Non-distended Integumentary: No tenderness/swelling, No erythema, No warmth, No cyanosis Neurological: Normal speech, Normal affect - Studies Medications List Reviewed: Yes Assessment & Plan Discharge Plan: Home Plan to discharge in: 24 Hours Physician Review Additional Text: Impression: Unsteadiness/ataxia secondary to acute right cerebellar infarct Hypertensive urgency with history of hypertension Hyperlipidemia History of cocaine, marijuana use Alcohol use Plan: Unsteadiness/ataxia secondary to acute right cerebellar infarct: Patient continues to improve. Will continue to work with physical therapy. Continue with medications including aspirin, Plavix, folic acid and blood pressure medication. Blood pressure medication adjusted. Patient now on Norvasc 10 mg daily, lisinopril 20 mg 1 pill twice daily, and carvedilol 25 mg 1 pill twice daily. Will add hydralazine 25 mg twice daily for better control. Case discussed with Neurology and Cardiology. Patient plans to do physical therapy as an outpatient. Will reassess and discuss with physical therapy to see if the patient can be safely discharged today if not in the next 24 hr. This was discussed in detail with patient and daughter. Hypertensive urgency with history of hypertension: Medications have been adjusted. Patient now on Norvasc 10 mg daily, lisinopril 20 mg 1 pill twice daily, carvedilol 25 mg 1 pill twice daily, and hydralazine 25 mg 1 pill twice daily. Echocardiogram unremarkable. Ejection fraction within normal range. No evidence of CHF. Hyperlipidemia: Patient continues with Lipitor.. History of cocaine, marijuana use: Cessation education addressed. Patient plans to quit. Alcohol use: Alcohol cessation education addressed. Time Spent Managing Pts Care (In Minutes): 55
--- NOTE | 2019-10-05 15:40 | P.DS ---
Admission Date: 10/03/19 Discharge Date: 10/05/19 Primary Care Provider: Daniella Meza NP; Cardiology-Dr. Mcdonald Disposition: ROUTINE DISCHARGE Discharge Condition: GOOD Reason for Admission: Ataxia Consultations: Cardiology-Dr. Mcdonald Neurology-Dr. Mcghee Procedures: MRI Brain: FINDINGS: Mild signal within periventricular, deep and subcortical white matter probably ischemic changes secondary to small vessel disease Small low-density area within the left thalamus compatible with an old lacunar infarction The ventricles are normal in caliber. Diffusion-weighted/ ADC mapping sequences demonstrate abnormal signal within the right cerebellum compatible with acute infarction No abnormal enhancement within the brain is seen. An extra-axial fluid collection is not noted. Fluid within the sinuses/mastoids is not seen IMPRESSION: Acute right cerebellar infarction MRA Brain: FINDINGS: The anterior cerebral, middle cerebral, posterior cerebral, distal internal carotid and basilar arteries do not demonstrate a significant stenosis. origin left posterior cerebral artery An aneurysm is not displayed. IMPRESSION: No acute abnormality displayed MRA Neck: FINDINGS: The common carotid, internal carotid and external carotid arteries do not demonstrate a significant stenosis. An aneurysm is not seen. The left vertebral artery is normal. The distal right vertebral artery is normal. Signal is not seen within the remainder of the right vertebral artery. IMPRESSION: Signal is not visualized within most of the right vertebral artery. This is commonly seen with a very hypoplastic vertebral artery. A dissection can have a similar appearance but probably is less likely. If clinically indicated further evaluation with CT angiogram could be obtained ECHO: Ejection fraction 74% LEFT VENTRICULAR WALL MOTION: NORMAL DOPPLER/COLOR FLOW: NORMAL COMMENTS: NORMAL 2D ECHOCARDIOGRAM WITH DOPPLER. NO WALL MOTION ABNORMALITY. NO EFFUSION. NO THROMBUS. Medical Problem list: Unsteadiness/ataxia secondary to acute right cerebellar infarct Hypertensive urgency with history of hypertension Hyperlipidemia History of cocaine, marijuana use Alcohol use Suspect GERD Obesity, BMI 39.9 Brief History of Present Illness: 49-year-old male with history of CAD, hypertension and systolic congestive heart failure. Patient reports that he came on Wednesday due to low blood pressure. He apparently was using too much of his blood pressure medication. At that time it was recommended to hold all his medication. He was to follow up with Cardiology today but this morning around 3:00 a.m. he reported some ataxia. He felt very unsteady. He denied any significant chest pain, shortness of breath. The unsteadiness worsened so he came to the ER for further evaluation. In the ER patient was evaluated. Blood pressures were elevated in the 220 systolic range. CBC BMP pending. CT scan showed abnormality. MRI confirmed acute cerebellar infarct. Patient currently stable this time. Patient was given medication for blood pressure in the emergency room. Blood pressure now 177/98. Patient stable this time. When I saw the patient ER, he appeared stable. No significant chest pain, shortness of breath noted. No weakness, slurred speech. Patient admits history of alcohol use and prior cocaine/marijuana use. He reported using cocaine and marijuana 2 weeks ago. Hospital Course: Patient presented with unsteadiness and ataxia. Patient with underlying hypertension, hyperlipidemia and history of cocaine/marijuana/alcohol use. The patient was evaluated in the emergency room found to have an acute right cerebellar infarct. The patient was admitted for further evaluation and treatment. Patient also presented with hypertensive urgency. During the course of his stay patient was evaluated by cardiology and neurology. Patient also worked with physical therapy. Medications were adjusted and additional medication added for better blood pressure control. Patient was placed on aspirin, Plavix and Lipitor as well. Patient has no will insurance therefore patient could not be evaluated for inpatient rehab or skilled placement. At discharge patient is doing well with a walker. He will continue with physical therapy recommendations. It is recommended that he continue with physical therapy as an outpatient. He will continue with this. At discharge patient will continue with aspirin 81 mg daily, Plavix 75 mg daily, Norvasc 10 mg daily, lisinopril 20 mg 1 pill twice daily, carvedilol 25 mg 1 pill twice daily, hydralazine 25 mg 1 pill twice daily, folic acid 1 mg daily and Lipitor 80 mg daily. Recommendations for the patient to follow up with neurology in 2-4 weeks to monitor his progress. Patient will need a follow up with neurology to determine when the patient will be able to return to work. It is also recommended that the patient follow up with cardiology in 1-2 weeks to follow up this hospitalization. Patient has establish care with Cardiology in the past. Patient with hypertension. Patient presented with hypertensive urgency. As stated above patient will continue with Norvasc 10 mg daily, lisinopril 20 mg 1 pill twice daily, carvedilol 25 mg 1 pill twice daily, and hydralazine 25 mg 1 pill twice daily. Recommendation is to maintain blood pressure less 150/80. Further adjustment can be done by his PCP or cardiology. Patient with hyperlipidemia. Medications have been adjusted. At discharge he will continue with Lipitor 80 mg daily. Patient with history of cocaine, marijuana and alcohol use. Cessation education addressed in detail. Patient plans to quit. Patient may continue with folic acid 1 mg daily and thiamine 100 mg daily. Patient likely with underlying GERD. At discharge he will continue with Pepcid 20 mg 1 pill twice daily. Vital Signs/Physical Exam: Temp Pulse Resp BP Pulse Ox 99.4 F 69 20 155/91 H 98 10/05/19 12:00 10/05/19 12:00 10/05/19 12:00 10/05/19 12:00 10/05/19 12:00 General: Alert, In no apparent distress, Oriented x3, Cooperative HEENT: Atraumatic Neck: Supple Respiratory: Clear to auscultation bilaterally, Normal air movement Cardiovascular: Normal pulses, Regular rate/rhythm Gastrointestinal: Normal bowel sounds, Soft and benign, Non-distended, No tenderness, No masses, No rebound, No guarding Musculoskeletal: No erythema, No tenderness, No warmth Neurological: Normal speech, Normal strength at 5/5 x4 extr, Normal tone, Normal affect Laboratory Data at Discharge: WBC 13.2 K/uL (4.3-10.9) H 10/05/19 04:27 Hgb 15.9 g/dL (13.6-17.9) 10/05/19 04:27 Hct 46.1 % (39.6-49.0) 10/05/19 04:27 Plt Count 241 K/uL (152-406) 10/05/19 04:27 PT 12.1 SECONDS (9.5-12.5) 10/03/19 12:07 INR 1.03 10/03/19 12:07 Sodium 136 mmol/L (136-145) 10/05/19 04:27 Potassium 3.8 mmol/L (3.5-5.1) 10/05/19 04:27 BUN 13 mg/dL (7-18) 10/05/19 04:27 Creatinine 0.98 mg/dL (0.55-1.3) 10/05/19 04:27 Glucose 113 mg/dL (74-106) H 10/05/19 04:27 Magnesium 2.4 mg/dL (1.8-2.4) 10/05/19 04:27 Total Bilirubin 0.6 mg/dL (0.2-1.0) 10/03/19 12:07 AST 27 U/L (15-37) 10/03/19 12:07 ALT 56 U/L (12-78) 10/03/19 12:07 Alkaline Phosphatase 80 U/L (45-117) 10/03/19 12:07 Triglycerides 108 mg/dL (<150) 10/03/19 12:07 Cholesterol 199 mg/dL (<200) 10/03/19 12:07 HDL Cholesterol 53 mg/dL (40-60) 10/03/19 12:07 Cholesterol/HDL Ratio 3.75 10/03/19 12:07 Home Medications: Amlodipine [Norvasc*] 10 mg PO DAILY #30 tab 10/05/19 Aspirin [Aspirin EC 81 MG] 81 mg PO DAILY #90 tablet. 10/05/19 Atorvastatin Calcium [Lipitor] 80 mg PO BEDTIME #30 tab 10/05/19 Clopidogrel Bisulfate [Plavix*] 75 mg PO DAILY #30 tablet 10/05/19 Famotidine [Pepcid*] 20 mg PO BID #60 tab 10/05/19 Folic Acid 1 mg PO DAILY #30 tablet 10/05/19 Hydralazine [Apresoline*] 25 mg PO BID #60 tab 10/05/19 Thiamine HCl 100 mg PO DAILY #30 tablet 10/05/19 carvediloL [Coreg*] 25 mg PO BID 6AM 6PM #60 tab 10/05/19 lisinopriL [Prinivil*] 20 mg PO BID #60 tab 10/05/19 New Medications: Hydralazine [Apresoline*] 25 mg PO BID #60 tab Aspirin [Aspirin EC 81 MG] 81 mg PO DAILY #90 tablet. carvediloL [Coreg*] 25 mg PO BID 6AM 6PM #60 tab Folic Acid 1 mg PO DAILY #30 tablet Atorvastatin Calcium [Lipitor] 80 mg PO BEDTIME #30 tab Amlodipine [Norvasc*] 10 mg PO DAILY #30 tab Famotidine [Pepcid*] 20 mg PO BID #60 tab Clopidogrel Bisulfate [Plavix*] 75 mg PO DAILY #30 tablet lisinopriL [Prinivil*] 20 mg PO BID #60 tab Thiamine HCl 100 mg PO DAILY #30 tablet Patient Discharge Instructions: 1. Recommend follow up with PCP in 1 week to follow up hospitalization. 2. Patient presented with unsteadiness and ataxia. Patient with underlying hypertension, hyperlipidemia and history of cocaine/marijuana/alcohol use. The patient was evaluated in the emergency room found to have an acute right cerebellar infarct. The patient was admitted for further evaluation. Patient also presented with hypertensive urgency. During the course of his stay patient was evaluated by cardiology and neurology. Patient also worked with physical therapy. Medications were adjusted and additional medication added for better blood pressure control. Patient was placed on aspirin, Plavix and Lipitor as well. Patient has no will insurance therefore patient could not be evaluated for inpatient rehab or skilled placement. At discharge patient is doing well with a walker. He will continue with physical therapy recommendations. It is recommended that he continue with physical therapy as an outpatient. He will continue with this. At discharge patient will continue with aspirin 81 mg daily, Plavix 75 mg daily, Norvasc 10 mg daily, lisinopril 20 mg 1 pill twice daily, carvedilol 25 mg 1 pill twice daily, hydralazine 25 mg 1 pill twice daily, folic acid 1 mg daily and Lipitor 80 mg daily. Recommendations for the patient to follow up with neurology in 2-4 weeks to monitor his progress. Patient will need a follow up with neurology to determine when the patient will be able to return to work. It is also recommended that the patient follow up with cardiology in 1-2 weeks to follow up this hospitalization. Patient has establish care with Cardiology in the past. 3. Patient with hypertension. Patient presented with hypertensive urgency. As stated above patient will continue with Norvasc 10 mg daily, lisinopril 20 mg 1 pill twice daily, carvedilol 25 mg 1 pill twice daily, and hydralazine 25 mg 1 pill twice daily. Recommendation is to maintain blood pressure less 150/80. Further adjustment can be done by his PCP or cardiology. 4. Patient with hyperlipidemia. Medications have been adjusted. At discharge he will continue with Lipitor 80 mg daily. 5. Patient with history of cocaine, marijuana and alcohol use. Cessation education addressed in detail. Patient plans to quit. Patient may continue with folic acid 1 mg daily and thiamine 100 mg daily. 6. Patient likely with underlying GERD. At discharge he will continue with Pepcid 20 mg 1 pill twice daily. Diet: AHA Activity: Fall precautions Time spent managing pt's care (in minutes): 55
[2019-10-05 17:17] VITALS: BP 166/95; TEMP 97.6
[2019-10-05] MEDS ORDERED: HYDRALAZINE HCL 25 MG TABLET PO SCH (21:00)
== END 2019-10-05 17:02 | disposition home or self-care (01) | DRG 65 ==
LOC: ER 08:11 → ERHOLD 12:06 → 4TH 13:05 → 2ND 10-04 20:28
PROVIDERS: ADMIT Family Medicine; ATTEND Family Medicine
DX: I63.9 Cerebral infarction, unspecified (principal); I50.22 Chronic systolic (congestive) heart failure; I43 Cardiomyopathy in diseases classified elsewhere; I25.10 Atherosclerotic heart disease of native coronary artery without angina pectoris; I11.0 Hypertensive heart disease with heart failure; E78.5 Hyperlipidemia, unspecified; I16.0 Hypertensive urgency; F14.10 Cocaine abuse, uncomplicated; E66.9 Obesity, unspecified; K21.9 Gastro-esophageal reflux disease without esophagitis; R29.701 NIHSS score 1; R27.0 Ataxia, unspecified; Z68.39 Body mass index [BMI] 39.0-39.9, adult; Z79.82 Long term (current) use of aspirin; Z79.02 Long term (current) use of antithrombotics/antiplatelets; Z79.899 Other long term (current) drug therapy; Z91.19 Patient's noncompliance with other medical treatment and regimen
CPT/HCPCS: 36415; 70450; 70544; 70549; 70553; 71046; 80048; 80061; 80076; 80307; 83735; 83880; 84443; 84484; 85025; 85610; 92526; 93005; 93306; 97116; 97161; 97530; 99285; A9577; J0360; J1650; J2405